=== PATIENT | female | born 1995 | race Caucasian/White ===

== ENCOUNTER 2016-05-13 21:04 | Outpatient (CLI) | payer OTHER ==
[2016-05-13 21:56] LABS: APPEARANCE,URINE CLEAR; BILIRUBIN,URINE NEGATIVE (NEGATIVE); GLUCOSE, URINE NEGATIVE (NEGATIVE); KETONES,URINE NEGATIVE (NEGATIVE); LEUKOCYTE ESTERASE,URINE NEGATIVE (NEGATIVE); NITRITE,URINE NEGATIVE (NEGATIVE); PROTEIN,URINE NEGATIVE (NEGATIVE); URINE SPECIFIC GRAVITY 1.004; UROBILINOGEN,URINE NEGATIVE mg/dL (<2.0)
--- NOTE | 2016-05-13 22:01 | L&D Flow Sheet ---
LD Flowsheet Datetime Report Generated by CPN: 05/13/2016 22:00 Datetime: 05/13/2016 21:43 Vital Signs NBP Sys/Montse/Mean (mmHg): 129 (QS system process) : 80 (QS system process) : 96 (QS system process) Pulse: 83 (QS system process) Datetime: 05/13/2016 21:34 Pain Pain Scale: 4 (Patt Ring, RN) Pain Presence: Constant (Patt Ring, RN) Pain Type: Stabbing (Patt Ring, RN) Pain Location: Back (Patt Ring, RN) Pain Goal: 1 (Patt Ring, RN) Pain Relief Measures: Comfort Measures (Patt Ring, RN) Vaginal Exam Membrane Status: Intact (Patt Ring, RN) Vaginal Bleeding: None (Patt Ring, RN) Maternal Assessment Level of Consciousness: Fully Conscious (Patt Ring, RN) DTR's/Clonus: DTRs 2+; No Clonus (Patt Ring, RN) Headache: Denies (Patt Ring, RN) Breath Sounds, Left: Clear and Equal (Patt Ring, RN) Breath Sounds, Right: Clear and Equal (Patt Ring, RN) Nausea/Vomiting: Present (Annotations: Currently nauseated) (Patt Ring, RN) RUQ Epigastric Pain: Denies (Patt Ring, RN) Teaching Instructional Method: Verbal; Patient Instructed; Family/Support Person Instructed; Verbalized Understanding (Patt Donald RN) Plan of Care: Plan of Care Discussed (Patt Donald RN) Unit Routine: [place] to Room; Call [place]ois; Bed; Handwashing; Monitoring; Safety/Fall Risk Prevention; Bathroom Privileges (Patt Donald RN)
[2016-05-13 22:16] LABS: URINE BARBITURATES SCREEN NEGATIVE; URINE METHADONE SCREEN NEGATIVE; URINE OPIATES LOW NEGATIVE; URINE PHENCYCLIDINE SCREEN NEGATIVE
[2016-05-13] MEDS ORDERED: HYDROXYZINE PAMOATE 50 MG CAPSULE PO ONE (22:30)
[2016-05-13] MEDS ORDERED: HYDROXYZINE PAMOATE 50 MG CAPSULE ONE (22:37)
--- NOTE | 2016-05-13 23:01 | Non Stress Test Report ---
Non Stress Test Datetime Report Generated by CPN: 05/13/2016 23:00 DEMOGRAPHIC EGA NST: 33.6 INDICATION Indication for Study: Other Indication for Study (NST) Other: LC URINE RESULTS Urine Protein, NST: Negative Urine Ketones - NST: Negative Urine Glucose - NST: Negative Urine Blood - NST: Negative MONITORING Monitor Explained: Monitor Explained; Test Explained; Patient Verbalized Understanding Time on Monitor: 05/13/2016 21:32 Time off Monitor: 05/13/2016 22:26 NST Duration: 54 NST INTERVENTIONS NST Interventions: PO Hydration Physician Notified NST: Dr. Souza BABY A: [id number] BABY A Movement : Present Contraction Frequency : Occasional w/irritabilty FHR Baseline : 125 Accelerations : 15X15 Decelerations : None Variability : Moderate 6-25bpm NST Review: Meets Criteria for Reactive NST NST Review and Verified By : Willa Donald RN NST Results: Reactive NST REPORT Report Trigger: Send Report
== END 2016-05-13 22:47 | disposition home or self-care (01) ==
LOC: LC 21:04
PROVIDERS: ATTEND Obstetrics & Gynecology
PROC: 4A1HXCZ Monitoring of Products of Conception, Cardiac Rate, External Approach (ICD-10-PCS; principal; 2016-05-13)
DX: O47.03 False labor before 37 completed weeks of gestation, third trimester (principal); Z3A.33 33 weeks gestation of pregnancy
CPT/HCPCS: 80307; 81001; 87086

== ENCOUNTER 2016-06-01 12:30 | Outpatient (CLI) | payer OTHER | END 2016-06-01 13:05 | disposition home or self-care (01) | LOC: LC 12:30 | PROVIDERS: ATTEND Obstetrics & Gynecology | PROC: 4A1HXCZ Monitoring of Products of Conception, Cardiac Rate, External Approach (ICD-10-PCS; principal; 2016-06-01) | DX: Z34.93 Encounter for supervision of normal pregnancy, unspecified, third trimester (principal); Z36 Encounter for antenatal screening of mother; Z3A.36 36 weeks gestation of pregnancy | CPT/HCPCS: 59025 ==

== ENCOUNTER 2016-06-29 19:35 | Inpatient (IN) | payer OTHER ==
[2016-06-29] MEDS ORDERED: RINGERS SOLUTION,LACTATED 300 ML IV ONE (19:43)
[2016-06-29] MEDS ORDERED: ACETAMINOPHEN 325 MG TABLET PO PRN (19:44)
[2016-06-29] MEDS ORDERED: MAG HYDROX/AL HYDROX/SIMETH SUSP 30 ML UDCUP PO PRN (19:44)
--- NOTE | 2016-06-29 20:00 | L&D Flow Sheet ---
LD Flowsheet Datetime Report Generated by CPN: 06/29/2016 20:00 Datetime: 06/29/2016 19:59 Vital Signs NBP Sys/Montse/Mean (mmHg): 129 (QS system process) : 65 (QS system process) : 91 (QS system process) Pulse: 89 (QS system process) Communication LaborFlag: Antepartum (QS system process)
[2016-06-29 20:11] LABS: ABSOLUTE EOSINOPHILS # (AUTO) 0.1 10^3/uL (0.0-0.6); ABSOLUTE LYMPHOCYTES (AUTO) 1.4 10^3/uL (0.5-4.7); ABSOLUTE MONOCYTES (AUTO) 0.6 10^3/uL (0.1-1.4); BASOPHILS % (AUTO) 0.3 % (0-2); HEMOGLOBIN 11.7 g/dL (12.0-15.5); HGB HCT DIFFERENCE 0.1; LYMPHOCYTES % (AUTO) 15.4 % (13-45); MEAN CORPUSCULAR HEMOGLOBIN 30.3 pg (27.0-33.4); MEAN CORPUSCULAR HGB CONC 33.5 g/dL (32.0-36.0); MEAN CORPUSCULAR VOLUME 90 fl (80-97); MONOCYTES % (AUTO) 6.1 % (3-13); RED BLOOD COUNT 3.88 10^6/uL (3.72-5.28); RED CELL DISTRIBUTION WIDTH 14.4 % (11.5-14.0); SEGMENTED NEUTROPHILS % (AUTO) 77.2 % (42-78)
[2016-06-29] MEDS: RINGERS SOLUTION,LACTATED 1,000 ML IV PRN (20:23)
[2016-06-29 20:27] LABS: ALANINE AMINOTRANSFERASE 29 U/L (9-52); ALBUMIN 3.2 g/dL (3.5-5.0); ALKALINE PHOSPHATASE 210 U/L (38-126); ANION GAP 10 (5-19); ASPARTATE AMINO TRANSFERASE 23 U/L (14-36); BILIRUBIN,TOTAL 0.3 mg/dL (0.2-1.3); BLOOD UREA NITROGEN 13 mg/dL (7-20); CALCIUM 9.5 mg/dL (8.4-10.2); CARBON DIOXIDE 20 mmol/L (22-30); CHLORIDE 107 mmol/L (98-107); CREATININE RESULT 0.74 mg/dL (0.52-1.25); GLUCOSE 118 mg/dL (75-110); POTASSIUM 4.1 mmol/L (3.6-5.0); SODIUM 136.6 mmol/L (137-145); TOTAL PROTEIN 5.9 g/dL (6.3-8.2)
[2016-06-29] MEDS: DINOPROSTONE 10 MG VAGINAL INSERT.SR PV PRN (20:27)
[2016-06-29 20:30] LABS: APPEARANCE,URINE SLIGHTLY-CLOUDY; BILIRUBIN,URINE NEGATIVE (NEGATIVE); GLUCOSE, URINE NEGATIVE (NEGATIVE); KETONES,URINE NEGATIVE (NEGATIVE); LEUKOCYTE ESTERASE,URINE TRACE (NEGATIVE); NITRITE,URINE NEGATIVE (NEGATIVE); PROTEIN,URINE NEGATIVE (NEGATIVE); URINE SPECIFIC GRAVITY 1.017; UROBILINOGEN,URINE NEGATIVE mg/dL (<2.0)
[2016-06-29 20:48] LABS: URINE BARBITURATES SCREEN NEGATIVE; URINE METHADONE SCREEN NEGATIVE; URINE OPIATES LOW NEGATIVE; URINE PHENCYCLIDINE SCREEN NEGATIVE
--- NOTE | 2016-06-29 22:00 | L&D Flow Sheet ---
LD Flowsheet Datetime Report Generated by CPN: 06/29/2016 22:00 Datetime: 06/29/2016 21:31 Monitor Mode: External; Palpation (Crystal Axtell, RN) Monitor Interventions for UA: [place] Adjusted (Crystal My, RN) Frequency (min): Irritability (Crystal Axtell, RN) Resting Tone (Palpate): Relaxed (Crystal Axtell, RN) Contraction Comments: Pt reports not feeling contractions. (Crystal Axtell, RN) Monitor Mode: External US (Crystal Axtell, RN) FHR Baseline Rate : 130 (Crystal Axtell, RN) Variability: Moderate 6-25 bpm (Crystal My, RN) Accelerations: 15X15 (Crystal My, RN) Patient Position/Activity: Left Tilt; Semi-Fowlers (Crystal Axtell, RN) Datetime: 06/29/2016 21:27 NBP Sys/Montse/Mean (mmHg): 122 (QS system process) : 65 (QS system process) : 86 (QS system process) Pulse: 72 (QS system process) LaborFlag: Antepartum (QS system process) Datetime: 06/29/2016 21:00 Frequency (min): Irritability (Crystal Axtell, RN) Quality: Mild (Crystal My, RN) Resting Tone (Palpate): Relaxed (Crystal Axtell, RN) Monitor Mode: External US (Crystal My, RN) FHR Baseline Rate : 145 (Crystal Axtell, RN) Variability: Moderate 6-25 bpm (Crystal My, RN) Accelerations: 15X15 (Crystal Axtell, RN) Patient Position/Activity: Left Tilt; Semi-Fowlers (Crystal My, RN) Comfort Measures: Family Support (Crystal My, RN) Datetime: 06/29/2016 20:30 Monitor Mode: External; Palpation (Crystal My, RN) Monitor Interventions for UA: [place] Adjusted (Crystal Axtell, RN) Quality: Mild (Crystal Axtell, RN) Resting Tone (Palpate): Relaxed (Crystal My, RN) Monitor Mode: External US (Crystal Axtell, RN) FHR Baseline Rate : 145 (Crystal Axtell, RN) Variability: Moderate 6-25 bpm (Crystal Axtell, RN) Accelerations: 15X15 (Crystal My, RN) Patient Position/Activity: Right Tilt; Semi-Fowlers (Crystal My, RN) Datetime: 06/29/2016 20:27 Dilatation (cm): 0.5 (Crystal My, RN) Effacement (%): 25 (Crystal Axtell, RN) Station: 0 (Crystal My, RN) Exam by: Lisandro Pepe RN (Crystal My, RN) Vaginal Bleeding: None (Crystal My, RN) Cervix, Consistency: Firm (Crystal My, RN) Cervix, Position: Midposition (Crystal Axtell, RN) Cervical Ripening Agents: Cervidil (Crystal My, RN) Datetime: 06/29/2016 20:10 Comments: [id number]; acoustic stimulation with music (Milla Rasmussen RN) Datetime: 06/29/2016 20:00 Monitor Mode: External; Palpation (Lelia Pepe RN) Frequency (min): 3-6 (Lelia Pepe RN) Quality: Mild (Lelia Pepe RN) Duration (sec): 40-60 (Lelia Pepe RN) Resting Tone (Palpate): Relaxed (Lelia Pepe RN) Monitor Mode: External US (Lelia Pepe RN) FHR Baseline Rate : 140 (Lelia Pepe RN) Variability: Moderate 6-25 bpm (Lelia Pepe RN) Comments: diet soda provided (Milla Rasmussen RN) Procedures: Consents Signed (Lelia Pepe RN) Patient Position/Activity: Left Tilt; Semi-Fowlers (Lelia Peep RN)
[2016-06-29] MEDS ORDERED: ZOLPIDEM TARTRATE 5 MG TABLET PO ONE (22:14)
[2016-06-29] MEDS ORDERED: ZOLPIDEM TARTRATE 5 MG TABLET ONE (22:18)
[2016-06-29] MEDS: ZOLPIDEM TARTRATE 5 MG TABLET PO SCH (22:28)
--- NOTE | 2016-06-30 08:00 | L&D Flow Sheet ---
LD Flowsheet Datetime Report Generated by CPN: 06/30/2016 08:00 Datetime: 06/30/2016 07:49 Level of Consciousness: Fully Conscious (Melissa Duenas, RN) DTR's/Clonus: DTRs 2+; No Clonus (Melissa Duenas, RN) Headache: Denies (Melissa Duenas, RN) Breath Sounds, Left: Clear and Equal (Melissa Duenas, RN) Breath Sounds, Right: Clear and Equal (Melissa Duenas, RN) Nausea/Vomiting: Denies (Melissa Duenas, RN) RUQ Epigastric Pain: Denies (Melissa Duenas, RN) Datetime: 06/30/2016 07:33 Communication Comments: report received from [place], RN (Melissa Duenas, RN) Datetime: 06/30/2016 07:30 Monitor Mode: External; Palpation (Melissa Duenas, RN) Frequency (min): 2-4 (Melissa Duenas, RN) Quality: Mild (Melissa Henrique, RN) Duration (sec): 40-60 (Melissa Henrique, RN) Duration Criteria: Less than Two 120 Second Contractions (Melissa Henrique, RN) Pattern: Normal: <= 5 Contractions in 10 Minutes (Melissa Henrique, RN) Resting Tone (Palpate): Relaxed (Melissa Henrique, RN) Monitor Mode: External US (Melissa Henrique, RN) FHR Baseline Rate : 120 (Melissa Henrique, RN) FHR Baseline Changes: No Baseline Change (Melissa Henrique, RN) Variability: Moderate 6-25 bpm (Melissa Henrique, RN) Accelerations: 15X15 (Melissa Henrique, RN) Decelerations: None (Melissa Henrique, RN) Datetime: 06/30/2016 07:08 Strip Reviewed by: Lisandro Pepe RN (Crystal My, RN) Communication: RN Reviewed Strip; Report Given to @ Mike Duenas RN (Crystal My, RN) Datetime: 06/30/2016 07:00 Monitor Interventions for UA: [place] Adjusted (Crystal My, RN) Duration Criteria: Less than Two 120 Second Contractions (Crystal [place], RN) Resting Tone (Palpate): Relaxed (Crystal My, RN) Monitor Mode: External US (Crystal [place], RN) FHR Baseline Rate : 125 (Crystal [place], RN) Variability: Moderate 6-25 bpm (Crystal [place], RN) Accelerations: 15X15 (Crystal [place], RN) Datetime: 06/30/2016 06:30 Monitor Interventions for UA: [place] Adjusted (Crystal [place], RN) Frequency (min): UTD (Crystal [place], RN) Monitor Mode: External US (Crystal My, RN) FHR Baseline Rate : 120 (Crystal My, RN) Variability: Moderate 6-25 bpm (Crystal [place], RN) Accelerations: 15X15 (Crystal My, RN) I/O Interventions: Up to BR (Crystal [place], RN) Datetime: 06/30/2016 06:00 Monitor Interventions for UA: [place] Adjusted (Crystal [place], RN) Resting Tone (Palpate): Relaxed (Crystal [place], RN) Monitor Mode: External US (Crystal [place], RN) FHR Baseline Rate : 120 (Crystal [place], RN) Variability: Moderate 6-25 bpm (Crystal My, RN) Accelerations: 15X15 (Crystal My, RN) Datetime: 06/30/2016 05:30 Monitor Mode: External; Palpation (Crystal My, RN) Monitor Interventions for UA: [place] Adjusted (Crystal [place], RN) Frequency (min): 5-6 (Crystal [place], RN) Quality: Mild (Crystal [place], RN) Duration (sec): 70-90 (Crystal My, RN) Duration Criteria: Less than Two 120 Second Contractions (Crystal My, RN) Resting Tone (Palpate): Relaxed (Crystal [place], RN) Monitor Mode: External US (Crystal My, RN) Variability: Moderate 6-25 bpm (Crystal My, RN) Accelerations: 15X15 (Crystal [place], RN) Patient Position/Activity: Left Lateral (Crystal [place], RN) Datetime: 06/30/2016 05:00 Frequency (min): 1-3 (Crystal My, RN) Quality: Mild (Crystal My, RN) Duration (sec): 60-110 (Crystal [place], RN) Resting Tone (Palpate): Relaxed (Crystal [place], RN) Monitor Mode: External US (Crystal My, RN) FHR Baseline Rate : 120 (Crystal My, RN) Variability: Moderate 6-25 bpm (Crystal [place], RN) Accelerations: 15X15 (Crystal My, RN) Patient Position/Activity: Left Lateral (Crystal [place], RN) Datetime: 06/30/2016 04:38 I/O Interventions: Up to BR (Crystal My, RN) Datetime: 06/30/2016 04:30 Monitor Mode: External (Crystal [place], RN) Frequency (min): 2-3.5 (Crystal [place], RN) Quality: Mild (Crystal [place], RN) Duration (sec): 80-110 (Crystal My, RN) Duration Criteria: Less than Two 120 Second Contractions (Crystal [place], RN) Resting Tone (Palpate): Relaxed (Crystal [place], RN) Monitor Mode: External US (Crystal [place], RN) FHR Baseline Rate : 120 (Crystal [place], RN) Variability: Moderate 6-25 bpm (Crystal [place], RN) Accelerations: 15X15 (Crystal My, RN) Patient Position/Activity: Left Lateral (Crystal My, RN) Datetime: 06/30/2016 04:00 Monitor Mode: External (Crystal My, RN) Frequency (min): 2-5 (Crystal [place], RN) Quality: Mild (Crystal [place], RN) Duration (sec): 80-100 (Crystal [place], RN) Duration Criteria: Less than Two 120 Second Contractions (Crystal [place], RN) Resting Tone (Palpate): Relaxed (Crystal My, RN) Monitor Mode: External US (Crystal My, RN) FHR Baseline Rate : 120 (Crystal My, RN) Variability: Moderate 6-25 bpm (Crystal [place], RN) Patient Position/Activity: Left Lateral (Crystal My, RN) Datetime: 06/30/2016 03:30 Monitor Mode: External (Crystal [place], RN) Frequency (min): 3-6 (Crystal My, RN) Quality: Mild (Crystal My, RN) Duration (sec): 40-60 (Crystal [place], RN) Duration Criteria: Less than Two 120 Second Contractions (Crystal My, RN) Resting Tone (Palpate): Relaxed (Crystal [place], RN) Monitor Mode: External US (Crystal My, RN) FHR Baseline Rate : 135 (Crystal My, RN) Variability: Moderate 6-25 bpm (Crystal My, RN) Patient Position/Activity: Left Lateral (Crystal [place], RN) Datetime: 06/30/2016 03:00 Monitor Mode: External; Palpation (Crystal My, RN) Frequency (min): 4-6 (Crystal [place], RN) Quality: Mild (Crystal [place], RN) Duration (sec): 40-60 (Crystal My, RN) Duration Criteria: Less than Two 120 Second Contractions (Crystal My, RN) Resting Tone (Palpate): Relaxed (Crystal My, RN) Monitor Mode: External US (Crystal My, RN) FHR Baseline Rate : 140 (Crystal [place], RN) Variability: Moderate 6-25 bpm (Crystal My, RN) Accelerations: Prolonged (Crystal My, RN) Patient Position/Activity: Left Lateral (Crystal My, RN) Datetime: 06/30/2016 02:38 NBP Sys/Montse/Mean (mmHg): 104 (QS system process) : 53 (QS system process) : 72 (QS system process) Pulse: 78 (QS system process) LaborFlag: Antepartum (QS system process) Datetime: 06/30/2016 02:30 Monitor Mode: External (Crystal My, RN) Frequency (min): 3-6 (Crystal My, RN) Quality: Mild (Crystal [place], RN) Duration (sec): 40-60 (Crystal My, RN) Duration Criteria: Less than Two 120 Second Contractions (Crystal [place], RN) Resting Tone (Palpate): Relaxed (Crystal [place], RN) Monitor Mode: External US (Crystal [place], RN) FHR Baseline Rate : 125 (Crystal My, RN) Patient Position/Activity: Right Lateral (Crystal [place], RN) Datetime: 06/30/2016 02:25 I/O Interventions: Up to BR (Crystal [place], RN) Datetime: 06/30/2016 02:00 Monitor Mode: External (Crystal [place], RN) Frequency (min): 3-6 (Crystal My, RN) Quality: Mild (Crystal My, RN) Duration (sec): 40-60 (Crystal [place], RN) Duration Criteria: Less than Two 120 Second Contractions (Crystal [place], RN) Resting Tone (Palpate): Relaxed (Crystal [place], RN) Monitor Mode: External US (Crystal My, RN) FHR Baseline Rate : 135 (Crystal My, RN) Variability: Moderate 6-25 bpm (Crystal [place], RN) Accelerations: 15X15 (Crystal My, RN) Patient Position/Activity: Right Lateral (Crystal [place], RN) Datetime: 06/30/2016 01:30 Monitor Mode: External (Crystal My, RN) Frequency (min): 2-5 (Crystal My, RN) Quality: Mild (Crystal [place], RN) Duration (sec): 40-60 (Crystal My, RN) Duration Criteria: Less than Two 120 Second Contractions (Crystal [place], RN) Resting Tone (Palpate): Relaxed (Crystal [place], RN) Monitor Mode: External US (Crystal [place], RN) FHR Baseline Rate : 120 (Crystal My, RN) Variability: Moderate 6-25 bpm (Crystal [place], RN) Accelerations: 15X15 (Crystal [place], RN) Patient Position/Activity: Right Lateral (Crystal My, RN) Datetime: 06/30/2016 01:00 Monitor Mode: External; Palpation (Crystal [place], RN) Frequency (min): 3-7 (Crystal My, RN) Quality: Mild (Crystal [place], RN) Duration (sec): 40-80 (Crystal [place], RN) Duration Criteria: Less than Two 120 Second Contractions (Crystal My, RN) Resting Tone (Palpate): Relaxed (Crystal [place], RN) Monitor Mode: External US (Crystal [place], RN) FHR Baseline Rate : 125 (Crystal [place], RN) Variability: Moderate 6-25 bpm (Crystal [place], RN) Patient Position/Activity: Right Lateral (Crystal [place], RN) Datetime: 06/30/2016 00:30 Monitor Mode: External; Palpation (Crystal [place], RN) Frequency (min): 2-6 (Crystal [place], RN) Quality: Mild (Crystal [place], RN) Duration (sec): 40-60 (Crystal [place], RN) Duration Criteria: Less than Two 120 Second Contractions (Crystal [place], RN) Resting Tone (Palpate): Relaxed (Crystal My, RN) Monitor Mode: External US (Crystal [place], RN) FHR Baseline Rate : 130 (Crystal [place], RN) Variability: Moderate 6-25 bpm (Crystal My, RN) Accelerations: 15X15 (Crystal [place], RN) Patient Position/Activity: Right Lateral (Crystal [place], RN) Datetime: 06/29/2016 23:30 Monitor Mode: External; Palpation (Crystal [place], RN) Frequency (min): 5-6 (Crystal [place], RN) Quality: Mild (Crystal My, RN) Duration (sec): 40-90 (Crystal My, RN) Duration Criteria: Less than Two 120 Second Contractions (Crystal My, RN) Resting Tone (Palpate): Relaxed (Crystal [place], RN) Monitor Mode: External US (Crystal [place], RN) FHR Baseline Rate : 120 (Crystal [place], RN) Variability: Moderate 6-25 bpm (Crystal My, RN) Patient Position/Activity: Right Lateral (Crystal My, RN) Datetime: 06/29/2016 23:20 NBP Sys/Montse/Mean (mmHg): 111 (QS system process) : 68 (QS system process) : 83 (QS system process) Pulse: 77 (QS system process) LaborFlag: Antepartum (QS system process) Datetime: 06/29/2016 23:00 Monitor Mode: Palpation (Crystal [place], RN) Monitor Interventions for UA: [place] Adjusted (Crystal My, RN) Frequency (min): 3-4 (Crystal [place], RN) Quality: Mild (Crystal [place], RN) Duration (sec): 50-70 (Crystal My, RN) Duration Criteria: Less than Two 120 Second Contractions (Crystal [place], RN) Resting Tone (Palpate): Relaxed (Crystal My, RN) Contraction Comments: pt lying on side (Crystal [place], RN) Monitor Mode: External US (Crystal My, RN) FHR Baseline Rate : 130 (Crystal My, RN) Variability: Moderate 6-25 bpm (Crystal [place], RN) Accelerations: 15X15 (Crystal My, RN) Patient Position/Activity: Right Lateral (Crystal My, RN) Datetime: 06/29/2016 22:32 NBP Sys/Montse/Mean (mmHg): 126 (QS system process) : 69 (QS system process) : 86 (QS system process) Pulse: 80 (QS system process) LaborFlag: Antepartum (QS system process) Datetime: 06/29/2016 22:30 Monitor Mode: External; Palpation (Crystal My, RN) Monitor Interventions for UA: [place] Adjusted (Crystal [place], RN) Quality: Mild (Crystal My, RN) Resting Tone (Palpate): Relaxed (Crystal My, RN) Monitor Mode: External US (Crystal My, RN) FHR Baseline Rate : 130 (Crystal [place], RN) Variability: Moderate 6-25 bpm (Crystal [place], RN) Accelerations: 15X15 (Crystal [place], RN) Patient Position/Activity: Left Tilt; Semi-Fowlers (Crystal [place], RN) Datetime: 06/29/2016 22:28 Analgesics/Sedatives: Ambien (mg) @ 10 (Crystal [place], RN) Datetime: 06/29/2016 22:26 Provider Reviewed Strip: Yes (Crystal [place], RN) Communication: RN at Bedside (Crystal My, RN) Notification Reason: Other (Crystal [place], RN) Communication Comments: Discussed birthplan with pt. Pt verbalized understanding. (Crystal [place], RN) Datetime: 06/29/2016 22:24 I/O Interventions: Up to BR (Crystal My, RN) Datetime: 06/29/2016 22:00 Monitor Mode: External; Palpation (Lelia Pepe RN) Frequency (min): Irritability (Lelia Pepe RN) Quality: Mild (Lelia Pepe RN) Resting Tone (Palpate): Relaxed (Lelia Pepe RN) Monitor Mode: External US (Lelia Pepe RN) FHR Baseline Rate : 135 (Lelia Pepe RN) Variability: Moderate 6-25 bpm (Lelia Pepe RN) Accelerations: 15X15 (Lelia Pepe RN) Patient Position/Activity: Left Tilt; Semi-Fowlers (Lelia Pepe RN)
[2016-06-30] MEDS ORDERED: MISOPROSTOL 0.1 MG TABLET PO ONE ×2 (08:48→14:02)
--- NOTE | 2016-06-30 10:00 | L&D Flow Sheet ---
LD Flowsheet Datetime Report Generated by CPN: 06/30/2016 10:00 Datetime: 06/30/2016 08:41 Communication Comments: monitors removed for patient to eat breakfast and shower (Melissa Henrique, RN) Datetime: 06/30/2016 08:40 Communication Comments: order received from Dr. Souza for Cytotec 50 mg PO x1 after patient is off monitor for one hour (Melissa Henrique, RN) Datetime: 06/30/2016 08:37 Dilatation (cm): 0.5 (Melissa Duenas RN) Effacement (%): 25 (Melissa Duenas RN) Station: -1 (Melissa Duenas RN) Exam by: Mike Duenas RN (Melissa Duenas RN) Vaginal Bleeding: None (Melissa Duenas RN) Cervix, Consistency: Moderate (Melissa Duenas RN) Cervix, Position: Midposition (Melissa Duenas RN) Datetime: 06/30/2016 08:34 Communication Comments: cervidil removed (Melissa Duenas, FREDDY) Datetime: 06/30/2016 08:30 Monitor Mode: External; Palpation (Melissa Duenas, RN) Frequency (min): 2-2.5 (Melissa Duenas, RN) Quality: Mild (Melissa Duenas, RN) Duration (sec): 70-90 (Melissa Duenas, RN) Duration Criteria: Less than Two 120 Second Contractions (Melissa Duenas, RN) Pattern: Normal: <= 5 Contractions in 10 Minutes (Melissa Duenas, RN) Resting Tone (Palpate): Relaxed (Melissa Duenas, RN) Monitor Mode: External US (Melissa Duenas, RN) FHR Baseline Rate : 130 (Melissa Duenas, RN) FHR Baseline Changes: No Baseline Change (Melissa Duenas, RN) Variability: Moderate 6-25 bpm (Melissa Duenas, RN) Accelerations: 15X15 (Melissa Duenas, RN) Decelerations: None (Melissa Duenas, RN) Datetime: 06/30/2016 08:00 Monitor Mode: External; Palpation (Melissa Duenas, FREDDY) Frequency (min): 2-4 (Melissa Duenas, RN) Quality: Mild (Melissa Duenas, RN) Duration (sec): 60-70 (Melissa Duenas, RN) Duration Criteria: Less than Two 120 Second Contractions (Melissa Duenas, RN) Pattern: Normal: <= 5 Contractions in 10 Minutes (Melissa Duenas, RN) Resting Tone (Palpate): Relaxed (Melissa Duenas, RN) Contraction Comments: irritability (Melissa Duenas, RN) Monitor Mode: External US (Melissa Duenas, RN) FHR Baseline Rate : 140 (Melissa Duenas, RN) FHR Baseline Changes: No Baseline Change (Melissa Duenas, RN) Variability: Moderate 6-25 bpm (Melissa Duenas, RN) Accelerations: 15X15 (Melissa Duenas RN) Decelerations: None (Melissa Duenas RN)
[2016-06-30] MEDS ORDERED: MISOPROSTOL 0.1 MG TABLET ONE ×2 (10:02→13:55)
--- NOTE | 2016-06-30 10:53 | L&D Progress Notes ---
PROGRESS NOTES Datetime Report Generated by CPN: 06/30/2016 10:53 PROGRESS NOTE Plan: Continue Present Management; Cervical Ripening Vital Signs : Reviewed; Within Normal Limits Comment: Cat 1 strip, minimal cervical change, cytotec placed continue current management VAGINAL EXAM Dilatation: 0 Effacement: 0 Station: -3 MEMBRANES Pooling: Negative Membranes: Intact FETUS A FHR - Baseline: 140 Variability: Moderate 6-25bpm Accelerations: 15X15 : 40.5 Estimated Weight (gm): 4000 Presentation: Vertex SIGNATURE SIGNATURE: [id number] SIGNATURE: [id number] SIGNATURE: [id number] Assignment: Rey Souza DO Signature: with User ID: [email or web address] : with User ID: [email or web address]
--- NOTE | 2016-06-30 12:00 | L&D Flow Sheet ---
LD Flowsheet Datetime Report Generated by CPN: 06/30/2016 12:00 Datetime: 06/30/2016 11:46 NBP Sys/Montse/Mean (mmHg): 108 (QS system process) : 58 (QS system process) : 79 (QS system process) Pulse: 71 (QS system process) LaborFlag: Antepartum (QS system process) Datetime: 06/30/2016 11:30 Monitor Mode: External; Palpation (Melissa Duenas RN) Frequency (min): irritability (Melissa Duenas RN) Quality: Mild (Melissa Duenas RN) Duration Criteria: Less than Two 120 Second Contractions (Melissa Duenas RN) Pattern: Normal: <= 5 Contractions in 10 Minutes (Melissa Duenas RN) Resting Tone (Palpate): Relaxed (Melissa Duenas RN) Monitor Mode: External US (Melissa Duenas RN) FHR Baseline Rate : 145 (Melissa Duenas, RN) FHR Baseline Changes: No Baseline Change (Melissa Duenas RN) Variability: Moderate 6-25 bpm (Melissa Duenas RN) Accelerations: 15X15 (Melissa Duenas RN) Decelerations: None (Melissa Duenas, RN) Datetime: 06/30/2016 11:15 NBP Sys/Montse/Mean (mmHg): 103 (QS system process) : 55 (QS system process) : 72 (QS system process) Pulse: 71 (QS system process) LaborFlag: Antepartum (QS system process) Datetime: 06/30/2016 11:01 NBP Sys/Montse/Mean (mmHg): 108 (QS system process) : 60 (QS system process) : 78 (QS system process) Pulse: 84 (QS system process) LaborFlag: Antepartum (QS system process) Datetime: 06/30/2016 11:00 Monitor Mode: External; Palpation (Melissa Duenas RN) Frequency (min): irritability (Melissa Duenas, RN) Quality: Mild (Melissa Duenas, RN) Duration Criteria: Less than Two 120 Second Contractions (Melissa Duenas, RN) Pattern: Normal: <= 5 Contractions in 10 Minutes (Melissa Duenas RN) Resting Tone (Palpate): Relaxed (Melissa Duenas, RN) Monitor Mode: External US (Melissa Duenas, RN) FHR Baseline Rate : 140 (Melissa Duenas, RN) FHR Baseline Changes: No Baseline Change (Melissa Duenas, RN) Variability: Moderate 6-25 bpm (Melissa Duenas, RN) Accelerations: 15X15 (Melissabarbara Duenas, RN) Decelerations: None (Melissa Duenas, RN) Datetime: 06/30/2016 10:54 I/O Interventions: Up to BR (Melissa Duenas, RN) Datetime: 06/30/2016 10:45 NBP Sys/Montse/Mean (mmHg): 117 (QS system process) : 69 (QS system process) : 86 (QS system process) Pulse: 86 (QS system process) LaborFlag: Antepartum (QS system process) Datetime: 06/30/2016 10:30 Monitor Mode: External; Palpation (Melissa Duenas RN) Frequency (min): irritability (Meilssa Duenas RN) Quality: Mild (Melissa Duensa RN) Duration Criteria: Less than Two 120 Second Contractions (Melissa Duenas RN) Pattern: Normal: <= 5 Contractions in 10 Minutes (Melissa Duenas RN) Resting Tone (Palpate): Relaxed (Melissa Duenas RN) Monitor Mode: External US (Melissa Duenas RN) FHR Baseline Rate : 140 (Melissa Duenas RN) FHR Baseline Changes: No Baseline Change (Melissa Duenas RN) Variability: Moderate 6-25 bpm (Melissa Duenas RN) Accelerations: 15X15 (Melissa Duenas RN) Decelerations: None (Melissa Duenas RN) Datetime: 06/30/2016 10:21 I/O Interventions: Up to BR (Melissa Henrique, RN) Datetime: 06/30/2016 10:16 NBP Sys/Montse/Mean (mmHg): 100 (QS system process) : 59 (QS system process) : 76 (QS system process) Pulse: 78 (QS system process) LaborFlag: Antepartum (QS system process) Datetime: 06/30/2016 10:15 Cervical Ripening Agents: Cytotec @ 50 mcg (Melissa Henrique, RN) Datetime: 06/30/2016 10:02 NBP Sys/Montse/Mean (mmHg): 120 (QS system process) : 71 (QS system process) : 90 (QS system process) Pulse: 78 (QS system process) LaborFlag: Antepartum (QS system process) Datetime: 06/30/2016 10:00 Monitor Mode: External; Palpation (Melissa Duenas RN) Frequency (min): irritability (Melissa Duenas RN) Quality: Mild (Melissa Duenas RN) Duration Criteria: Less than Two 120 Second Contractions (Melissa Duenas RN) Pattern: Normal: <= 5 Contractions in 10 Minutes (Melissa Duenas RN) Resting Tone (Palpate): Relaxed (Melissa Duenas RN) Monitor Mode: External US (Melissa Duenas RN) FHR Baseline Rate : 140 (Melissa Duenas RN) FHR Baseline Changes: No Baseline Change (Melissa Duenas RN) Variability: Moderate 6-25 bpm (Melissa Duenas RN) Accelerations: 15X15 (Melissa Duenas RN) Decelerations: None (Melissa Duenas RN)
[2016-06-30] MEDS ORDERED: NALBUPHINE HCL INJ 10 MG/1 ML AMPULE ONE (13:44)
--- NOTE | 2016-06-30 14:00 | L&D Flow Sheet ---
LD Flowsheet Datetime Report Generated by CPN: 06/30/2016 14:00 Datetime: 06/30/2016 13:46 Patient Position/Activity: Left Extreme; Low Fowlers (Melissa Henrique, RN) Datetime: 06/30/2016 13:44 I/O Interventions: Up to BR (Melissa Henrique, RN) Datetime: 06/30/2016 13:39 Communication Comments: patient c/o pain 5/5, tearful (Melissa Henrique, RN) Datetime: 06/30/2016 13:31 NBP Sys/Montse/Mean (mmHg): 112 (QS system process) : 56 (QS system process) : 74 (QS system process) Pulse: 76 (QS system process) LaborFlag: Antepartum (QS system process) Datetime: 06/30/2016 13:01 NBP Sys/[place]se/Mean (mmHg): 131 (QS system process) : 80 (QS system process) : 99 (QS system process) Pulse: 71 (QS system process) LaborFlag: Antepartum (QS system process) Datetime: 06/30/2016 12:47 NBP Sys/Montse/Mean (mmHg): 106 (QS system process) : 66 (QS system process) : 81 (QS system process) Pulse: 75 (QS system process) LaborFlag: Antepartum (QS system process) Datetime: 06/30/2016 12:33 NBP Sys/Montse/Mean (mmHg): 114 (QS system process) : 57 (QS system process) : 76 (QS system process) Pulse: 75 (QS system process) LaborFlag: Antepartum (QS system process) Datetime: 06/30/2016 12:15 NBP Sys/Montse/Mean (mmHg): 109 (QS system process) : 61 (QS system process) : 78 (QS system process) Pulse: 75 (QS system process) LaborFlag: Antepartum (QS system process) Datetime: 06/30/2016 12:00 NBP Sys/Montse/Mean (mmHg): 110 (QS system process) : 60 (QS system process) : 79 (QS system process) Pulse: 66 (QS system process) LaborFlag: Antepartum (QS system process)
--- NOTE | 2016-06-30 16:00 | L&D Flow Sheet ---
LD Flowsheet Datetime Report Generated by CPN: 06/30/2016 16:00 Datetime: 06/30/2016 15:45 NBP Sys/Montse/Mean (mmHg): 124 (QS system process) : 78 (QS system process) : 97 (QS system process) Pulse: 72 (QS system process) LaborFlag: Antepartum (QS system process) Datetime: 06/30/2016 15:31 NBP Sys/[place]se/Mean (mmHg): 131 (QS system process) : 79 (QS system process) : 100 (QS system process) Pulse: 67 (QS system process) LaborFlag: Antepartum (QS system process) Datetime: 06/30/2016 15:30 Monitor Mode: External; Palpation (Melissa Duenas RN) Frequency (min): irritability (Melissa Duenas RN) Quality: Mild (Melissa Duenas, FREDDY) Duration Criteria: Less than Two 120 Second Contractions (Melissa Duenas RN) Pattern: Normal: <= 5 Contractions in 10 Minutes (Melissa Duenas RN) Resting Tone (Palpate): Relaxed (Melissa Duenas RN) Monitor Mode: External US (Melissa Duenas RN) FHR Baseline Rate : 130 (Melissa Duenas RN) FHR Baseline Changes: No Baseline Change (Melissa Duenas RN) Variability: Moderate 6-25 bpm (Melissa Duenas, RN) Accelerations: None (Melissa Duenas, RN) Decelerations: None (Melissa Duenas, RN) Datetime: 06/30/2016 15:16 NBP Sys/[place]se/Mean (mmHg): 127 (QS system process) : 74 (QS system process) : 95 (QS system process) Pulse: 68 (QS system process) LaborFlag: Antepartum (QS system process) Datetime: 06/30/2016 15:01 NBP Sys/Montse/Mean (mmHg): 110 (QS system process) : 65 (QS system process) : 83 (QS system process) Pulse: 68 (QS system process) LaborFlag: Antepartum (QS system process) Datetime: 06/30/2016 15:00 Monitor Mode: External; Palpation (Melissa Duenas RN) Frequency (min): irritability (Melissa Duenas RN) Quality: Mild (Melissa Duenas RN) Duration Criteria: Less than Two 120 Second Contractions (Melissa Duenas RN) Pattern: Normal: <= 5 Contractions in 10 Minutes (Melissa Duenas RN) Resting Tone (Palpate): Relaxed (Melissa Duenas RN) Monitor Mode: External US (Melissa Duenas RN) FHR Baseline Rate : 125 (Melissa Duenas RN) FHR Baseline Changes: No Baseline Change (Melissa Deunas RN) Variability: Moderate 6-25 bpm (Melissa Duenas RN) Accelerations: 10X10 (Melissa Henrique, RN) Decelerations: None (Melissa Duenas, RN) Datetime: 06/30/2016 14:53 Pain Assessment Comments: patient resting peacefully (Melissa Duenas, RN) LaborFlag: Antepartum (QS system process) Datetime: 06/30/2016 14:45 NBP Sys/Montse/Mean (mmHg): 108 (QS system process) : 55 (QS system process) : 76 (QS system process) Pulse: 50 (QS system process) LaborFlag: Antepartum (QS system process) Datetime: 06/30/2016 14:31 NBP Sys/Montse/Mean (mmHg): 107 (QS system process) : 57 (QS system process) : 74 (QS system process) Pulse: 62 (QS system process) LaborFlag: Antepartum (QS system process) Datetime: 06/30/2016 14:30 Monitor Mode: External; Palpation (Melissa Duenas, RN) Frequency (min): irritability (Melissa Duenas, FREDDY) Quality: Mild (Melissa Duenas, RN) Duration Criteria: Less than Two 120 Second Contractions (Melissa Duenas, RN) Pattern: Normal: <= 5 Contractions in 10 Minutes (Melissa Duenas, RN) Resting Tone (Palpate): Relaxed (Melissa Duenas, RN) Monitor Mode: External US (Melissa Duenas, RN) FHR Baseline Rate : 125 (Melissa Duenas RN) FHR Baseline Changes: No Baseline Change (Melissa Duenas, RN) Variability: Moderate 6-25 bpm (Melissa Duenas, RN) Accelerations: None (Melissa Duenas, RN) Decelerations: None (Melissa Duenas, RN) Datetime: 06/30/2016 14:15 NBP Sys/Montse/Mean (mmHg): 106 (QS system process) : 62 (QS system process) : 77 (QS system process) Pulse: 57 (QS system process) LaborFlag: Antepartum (QS system process) Datetime: 06/30/2016 14:01 NBP Sys/Montse/Mean (mmHg): 108 (QS system process) : 62 (QS system process) : 80 (QS system process) Pulse: 67 (QS system process) LaborFlag: Antepartum (QS system process) Datetime: 06/30/2016 14:00 Monitor Mode: External; Palpation (Melissa Duenas RN) Frequency (min): irritability (Melissa Duenas RN) Quality: Mild (Melissa Duenas RN) Duration Criteria: Less than Two 120 Second Contractions (Melissa Duenas RN) Pattern: Normal: <= 5 Contractions in 10 Minutes (Melissa Duenas RN) Resting Tone (Palpate): Relaxed (Melissa Duenas RN) Monitor Mode: External US (Melissa Duenas RN) FHR Baseline Rate : 140 (Melissa Duenas RN) FHR Baseline Changes: No Baseline Change (Melissa Duenas RN) Variability: Moderate 6-25 bpm (Melissa Duenas RN) Accelerations: 15X15 (Melissa Duenas RN) Decelerations: None (Melissa Duenas RN) Cervical Ripening Agents: Cytotec @ 25 mcg (Melissa Duenas RN)
[2016-06-30] MEDS ORDERED: ONDANSETRON HCL INJ/PF 4 MG/2 ML SDV ONE (16:16)
[2016-06-30] MEDS ORDERED: HYDROXYZINE PAMOATE 50 MG CAPSULE ONE (17:45)
[2016-06-30] MEDS ORDERED: MORPHINE SULFATE 10 MG/ML INJ ONE (18:54)
[2016-06-30] MEDS ORDERED: DINOPROSTONE 10 MG VAGINAL INSERT.SR ONE (18:54)
[2016-06-30] MEDS: RINGERS SOLUTION,LACTATED 1,000 ML IV PRN (19:27)
[2016-06-30] MEDS: DINOPROSTONE 10 MG VAGINAL INSERT.SR PV PRN (19:27)
[2016-06-30] MEDS ORDERED: ONDANSETRON 4 MG TAB.RAPDIS ONE (19:55)
[2016-06-30] MEDS ORDERED: PROMETHAZINE HCL 25 MG TABLET ONE (19:55)
--- NOTE | 2016-06-30 20:01 | L&D Flow Sheet ---
LD Flowsheet Datetime Report Generated by CPN: 06/30/2016 20:00 Datetime: 06/30/2016 19:22 Communication: RN at Bedside (Miranda Nuno, RN) Communication Comments: Report received from M Adnerson. Assumed care at this time. (Miranda Nuno, RN) Datetime: 06/30/2016 19:21 Communication Comments: report given to B. Nuno, RN. Care relinquished (Melissa Henrique, RN) Datetime: 06/30/2016 19:15 Monitor Mode: External; Palpation (Melissa Henrique, RN) Frequency (min): 2-3 (Melissabarbara Duenas, RN) Quality: Mild (Melissa Henrique, RN) Duration (sec): 60-70 (Melissa Henrique, RN) Duration Criteria: Less than Two 120 Second Contractions (Melissa Henrique, RN) Pattern: Normal: <= 5 Contractions in 10 Minutes (Melissa Henrique, RN) Resting Tone (Palpate): Relaxed (Melissa Henrique, RN) Monitor Mode: External US (Melissa Henrique, RN) FHR Baseline Rate : 145 (Melissa Henrique, RN) FHR Baseline Changes: No Baseline Change (Melissa Henrique, RN) Variability: Moderate 6-25 bpm (Melissa Henrique, RN) Accelerations: 15X15 (Melissa Henrique, RN) Decelerations: None (Melissa Henrique, RN) Datetime: 06/30/2016 19:07 Cervical Ripening Agents: Cervidil (Melissa Henrique, RN) Datetime: 06/30/2016 19:06 Medication Comments: morphine 5mg IM per MD order (Melissa Henrique, RN) Datetime: 06/30/2016 19:00 NBP Sys/Montse/Mean (mmHg): 119 (QS system process) : 72 (QS system process) : 91 (QS system process) Pulse: 63 (QS system process) LaborFlag: Antepartum (QS system process) Datetime: 06/30/2016 18:30 Comments: patient off monitor in shower per MD order (Melissa Henrique, RN) Datetime: 06/30/2016 18:12 Temperature (F): 98.2 (Melissa Duenas RN) Temperature (C): 36.8 (QS system process) Communication Comments: patient off monitor to shower per MD (Melissa Duenas RN) LaborFlag: Antepartum (QS system process) Datetime: 06/30/2016 18:05 Communication Comments: patient c/o "cramping" pain 5/5. MD aware. Order received for patient to be off monitor to shower. Order received from Dr. Souza to place Cervidil once patient back in bed, give Morphine 5 mg IM x1 (Melissa Duenas RN) Datetime: 06/30/2016 18:01 NBP Sys/Montse/Mean (mmHg): 119 (QS system process) : 80 (QS system process) : 93 (QS system process) Pulse: 71 (QS system process) LaborFlag: Antepartum (QS system process) Datetime: 06/30/2016 18:00 Monitor Mode: External; Palpation (Melissa Duenas RN) Frequency (min): 2-4 (Melissa Duenas RN) Quality: Mild (Melissa Duenas RN) Duration (sec): 60-70 (Melissa Duenas, RN) Duration Criteria: Less than Two 120 Second Contractions (Melissa Duenas, FREDDY) Pattern: Normal: <= 5 Contractions in 10 Minutes (Melissa Duenas RN) Resting Tone (Palpate): Relaxed (Melissa Duenas, RN) Contraction Comments: with irritability (Melissa Duenas, RN) Monitor Mode: External US (Melissa Duenas, RN) FHR Baseline Rate : 135 (Melissa Duenas RN) FHR Baseline Changes: No Baseline Change (Melissa Duenas, RN) Variability: Moderate 6-25 bpm (Melissa Duenas, RN) Accelerations: 15X15 (Melissa Duenas, RN) Decelerations: None (Melissa Duenas, RN) Datetime: 06/30/2016 17:54 Patient Position/Activity: Hands-Knees (Melissa Henrique, RN) Datetime: 06/30/2016 17:46 NBP Sys/Montse/Mean (mmHg): 120 (QS system process) : 62 (QS system process) : 86 (QS system process) Pulse: 82 (QS system process) Medication Comments: Vistaril 50 mg PO x1 now (Melissa Duenas, RN) LaborFlag: Antepartum (QS system process) Datetime: 06/30/2016 17:45 Communication Comments: order received from Dr. Souza for Vistaril 50 mg PO x1 now (Melissa Henrique, RN) Datetime: 06/30/2016 17:40 Pain Scale: 5 (Melissa Duenas RN) Pain Presence: Intermittent (Melissa Duenas RN) Pain Type: Cramping (Melissa Duenas RN) Pain Location: Abdomen (Melissa Duenas RN) Pain Goal: 1 (Melissa Duenas RN) Pain Assessment Comments: patient c/o pain 08/19 (Melissa Duenas RN) LaborFlag: Antepartum (QS system process) Datetime: 06/30/2016 17:30 NBP Sys/Montse/Mean (mmHg): 111 (QS system process) : 59 (QS system process) : 78 (QS system process) Pulse: 62 (QS system process) Monitor Mode: External; Palpation (Melissa Duenas RN) Frequency (min): 2-4 (Melissa Duenas RN) Quality: Mild (Melissa Duenas RN) Duration (sec): 60-70 (Melissa Duenas RN) Duration Criteria: Less than Two 120 Second Contractions (Melissa Duenas RN) Pattern: Normal: <= 5 Contractions in 10 Minutes (Melissa Duenas RN) Resting Tone (Palpate): Relaxed (Melissa Duenas RN) Contraction Comments: with irritability (Melissa Duenas RN) Monitor Mode: External US (Melissa Duenas RN) FHR Baseline Rate : 120 (Melissa Duenas RN) FHR Baseline Changes: No Baseline Change (Melissa Duenas RN) Variability: Moderate 6-25 bpm (Melissa Duenas RN) Accelerations: None (Melissa Duenas RN) Decelerations: None (Melissa Duenas RN) LaborFlag: Antepartum (QS system process) Datetime: 06/30/2016 17:15 NBP Sys/Montse/Mean (mmHg): 116 (QS system process) : 58 (QS system process) : 81 (QS system process) Pulse: 71 (QS system process) LaborFlag: Antepartum (QS system process) Datetime: 06/30/2016 17:02 NBP Sys/Montse/Mean (mmHg): 117 (QS system process) : 57 (QS system process) : 82 (QS system process) Pulse: 69 (QS system process) LaborFlag: Antepartum (QS system process) Datetime: 06/30/2016 17:00 Monitor Mode: External; Palpation (Melissa Duenas, FREDDY) Frequency (min): 3-4 (Melissa Duenas, RN) Quality: Mild (Melissa Duenas, RN) Duration (sec): 60-70 (Melissa Duenas, RN) Duration Criteria: Less than Two 120 Second Contractions (Melissa Duenas, RN) Pattern: Normal: <= 5 Contractions in 10 Minutes (Melissa Duenas, RN) Resting Tone (Palpate): Relaxed (Melissa Duenas, RN) Contraction Comments: with irritability (Melissa Duenas, RN) Monitor Mode: External US (Melissa Duenas, RN) FHR Baseline Rate : 130 (Melissa Duenas, RN) FHR Baseline Changes: No Baseline Change (Melissa Duenas, RN) Variability: Moderate 6-25 bpm (Melissa Duenas, RN) Accelerations: 10X10 (Melissa Duenas, RN) Decelerations: None (Melissa Duenas, RN) Datetime: 06/30/2016 16:46 NBP Sys/Montse/Mean (mmHg): 133 (QS system process) : 86 (QS system process) : 105 (QS system process) Pulse: 77 (QS system process) LaborFlag: Antepartum (QS system process) Datetime: 06/30/2016 16:31 NBP Sys/Montse/Mean (mmHg): 111 (QS system process) : 58 (QS system process) : 79 (QS system process) Pulse: 65 (QS system process) LaborFlag: Antepartum (QS system process) Datetime: 06/30/2016 16:30 Monitor Mode: External; Palpation (Melissa Duenas RN) Frequency (min): 2-4 (Melissa Duenas RN) Quality: Mild (Melissa Duenas RN) Duration (sec): 60-70 (Melissa Duenas RN) Duration Criteria: Less than Two 120 Second Contractions (Melissa Duenas RN) Pattern: Normal: <= 5 Contractions in 10 Minutes (Melissa Duenas RN) Resting Tone (Palpate): Relaxed (Melissa Duenas RN) Contraction Comments: with irritability (Melissa Duenas RN) Monitor Mode: External US (Melissa Duenas RN) FHR Baseline Rate : 125 (Melissa Duenas RN) FHR Baseline Changes: No Baseline Change (Melissa Duenas RN) Variability: Moderate 6-25 bpm (Melissa Duenas RN) Accelerations: 10X10 (Melissa Duenas RN) Decelerations: None (Melissa Duenas RN) Datetime: 06/30/2016 16:15 NBP Sys/Montse/Mean (mmHg): 122 (QS system process) : 74 (QS system process) : 93 (QS system process) Pulse: 75 (QS system process) LaborFlag: Antepartum (QS system process) Datetime: 06/30/2016 16:00 NBP Sys/Montse/Mean (mmHg): 126 (QS system process) : 79 (QS system process) : 99 (QS system process) Pulse: 76 (QS system process) Monitor Mode: External; Palpation (Melissa Duenas RN) Frequency (min): 2-4 (Melissa Duenas RN) Quality: Mild (Melissa Duenas RN) Duration (sec): 50-70 (Melissa Duenas RN) Duration Criteria: Less than Two 120 Second Contractions (Melissa Duenas RN) Pattern: Normal: <= 5 Contractions in 10 Minutes (Melissa Duenas RN) Resting Tone (Palpate): Relaxed (Melissa Duenas RN) Contraction Comments: with irritability (Melissa Duenas RN) Monitor Mode: External US (Melissa Duenas RN) FHR Baseline Rate : 125 (Melissa Duenas RN) FHR Baseline Changes: No Baseline Change (Melissa Duenas RN) Variability: Moderate 6-25 bpm (Melissa Duenas RN) Accelerations: 10X10 (Meilssa Duenas RN) Decelerations: None (Melissa Duenas RN) LaborFlag: Antepartum (QS system process) Datetime: 06/30/2016 15:45 NBP Sys/Montse/Mean (mmHg): 124 (QS system process) : 78 (QS system process) : 97 (QS system process) Pulse: 72 (QS system process) LaborFlag: Antepartum (QS system process) Datetime: 06/30/2016 15:31 NBP Sys/Montse/Mean (mmHg): 131 (QS system process) : 79 (QS system process) : 100 (QS system process) Pulse: 67 (QS system process) LaborFlag: Antepartum (QS system process) Datetime: 06/30/2016 15:30 Monitor Mode: External; Palpation (Melissa Duenas, RN) Frequency (min): irritability (Melissa Duenas, RN) Quality: Mild (Melissa Duenas, RN) Duration Criteria: Less than Two 120 Second Contractions (Melissa Duenas, RN) Pattern: Normal: <= 5 Contractions in 10 Minutes (Melissa Duenas, RN) Resting Tone (Palpate): Relaxed (Melissa Duenas, RN) Monitor Mode: External US (Melissa Duenas, RN) FHR Baseline Rate : 130 (Melissa Duenas, RN) FHR Baseline Changes: No Baseline Change (Melissa Duenas, RN) Variability: Moderate 6-25 bpm (Melissa Duenas, RN) Accelerations: None (Melissa Duenas, RN) Decelerations: None (Melissa Duenas, RN) Datetime: 06/30/2016 15:16 NBP Sys/Montse/Mean (mmHg): 127 (QS system process) : 74 (QS system process) : 95 (QS system process) Pulse: 68 (QS system process) LaborFlag: Antepartum (QS system process) Datetime: 06/30/2016 15:01 NBP Sys/Montse/Mean (mmHg): 110 (QS system process) : 65 (QS system process) : 83 (QS system process) Pulse: 68 (QS system process) LaborFlag: Antepartum (QS system process) Datetime: 06/30/2016 15:00 Monitor Mode: External; Palpation (Melissa Duenas, FREDDY) Frequency (min): irritability (Melissa Duenas, FREDDY) Quality: Mild (Melissa Duenas RN) Duration Criteria: Less than Two 120 Second Contractions (Melissa Duenas, FREDDY) Pattern: Normal: <= 5 Contractions in 10 Minutes (Mleissa Duenas, RN) Resting Tone (Palpate): Relaxed (Melissa Duenas, FREDDY) Monitor Mode: External US (Melissa Duenas, FREDDY) FHR Baseline Rate : 125 (Melissa Duenas RN) FHR Baseline Changes: No Baseline Change (Melissa Duenas, RN) Variability: Moderate 6-25 bpm (Melissa Duenas, RN) Accelerations: 10X10 (Melissa Duenas, RN) Decelerations: None (Melissa Duenas, FREDDY) Datetime: 06/30/2016 14:53 Pain Assessment Comments: patient resting peacefully (Melissa Duenas, RN) LaborFlag: Antepartum (QS system process) Datetime: 06/30/2016 14:45 NBP Sys/Montse/Mean (mmHg): 108 (QS system process) : 55 (QS system process) : 76 (QS system process) Pulse: 50 (QS system process) LaborFlag: Antepartum (QS system process) Datetime: 06/30/2016 14:31 NBP Sys/Montse/Mean (mmHg): 107 (QS system process) : 57 (QS system process) : 74 (QS system process) Pulse: 62 (QS system process) LaborFlag: Antepartum (QS system process) Datetime: 06/30/2016 14:30 Monitor Mode: External; Palpation (Melissa Duenas, RN) Frequency (min): irritability (Melissa Duenas, RN) Quality: Mild (Melissa Duenas, RN) Duration Criteria: Less than Two 120 Second Contractions (Melissa Duenas, RN) Pattern: Normal: <= 5 Contractions in 10 Minutes (Melissa Duenas, RN) Resting Tone (Palpate): Relaxed (Melissa Duenas, RN) Monitor Mode: External US (Melissa Duenas, RN) FHR Baseline Rate : 125 (Melissa Duenas, RN) FHR Baseline Changes: No Baseline Change (Melissa Duenas, RN) Variability: Moderate 6-25 bpm (Melissa Duenas, RN) Accelerations: None (Melissa Duenas, RN) Decelerations: None (Melissa Duenas, RN) Datetime: 06/30/2016 14:15 NBP Sys/Montse/Mean (mmHg): 106 (QS system process) : 62 (QS system process) : 77 (QS system process) Pulse: 57 (QS system process) LaborFlag: Antepartum (QS system process) Datetime: 06/30/2016 14:01 NBP Sys/Montse/Mean (mmHg): 108 (QS system process) : 62 (QS system process) : 80 (QS system process) Pulse: 67 (QS system process) LaborFlag: Antepartum (QS system process) Datetime: 06/30/2016 14:00 Monitor Mode: External; Palpation (Melissa Duenas RN) Frequency (min): irritability (Melissa Duenas RN) Quality: Mild (Melissa Duenas RN) Duration Criteria: Less than Two 120 Second Contractions (Melissa Duenas RN) Pattern: Normal: <= 5 Contractions in 10 Minutes (Melissa Duenas RN) Resting Tone (Palpate): Relaxed (Melissa Duenas RN) Monitor Mode: External US (Melissa Duenas RN) FHR Baseline Rate : 140 (Melissa Duenas RN) FHR Baseline Changes: No Baseline Change (Melissa Duenas RN) Variability: Moderate 6-25 bpm (Melissa Duenas RN) Accelerations: 15X15 (Melissa Duenas RN) Decelerations: None (Melissa Duenas RN) Cervical Ripening Agents: Cytotec @ 25 mcg (Melissa Duenas RN) Datetime: 06/30/2016 13:58 Communication Comments: order received from DrRaymond Souza for Cytotec 25 mcg PO x1 now (Melissa Duenas, RN) Datetime: 06/30/2016 13:52 Analgesics/Sedatives: Nubain (mg) @ 10 (Melissa Duenas RN) Datetime: 06/30/2016 13:47 Dilatation (cm): 1.0 (Melissa Duenas RN) Effacement (%): 25 (Melissa Duenas RN) Station: -1 (Melissa Duenas RN) Exam by: Mike Duenas RN (Melissa Henrique, RN) Vaginal Bleeding: None (Melissa Henrique, RN) Cervix, Consistency: Moderate (Melissa Henrique, RN) Cervix, Position: Midposition (Melissa Duenas, RN) Datetime: 06/30/2016 13:46 Patient Position/Activity: Left Extreme; Low Fowlers (Melissa Duenas, RN) Datetime: 06/30/2016 13:44 I/O Interventions: Up to BR (Melissa Henrique, RN) Datetime: 06/30/2016 13:42 Communication Comments: order received from Rosalee Gaitan, [facility] for Nubain 10 mg IV x1 now (Melissa Duenas, RN) Datetime: 06/30/2016 13:39 Communication Comments: patient c/o pain 5/5, tearful (Melissa Duenas, RN) Datetime: 06/30/2016 13:31 NBP Sys/Montse/Mean (mmHg): 112 (QS system process) : 56 (QS system process) : 74 (QS system process) Pulse: 76 (QS system process) LaborFlag: Antepartum (QS system process) Datetime: 06/30/2016 13:30 Monitor Mode: External; Palpation (Melissa Duenas, RN) Frequency (min): irritability (Melissa Duenas, RN) Quality: Mild (Melissa Duenas, RN) Duration Criteria: Less than Two 120 Second Contractions (Melissa Duenas, RN) Pattern: Normal: <= 5 Contractions in 10 Minutes (Melissa Duenas, RN) Resting Tone (Palpate): Relaxed (Melissa Duenas, RN) Monitor Mode: External US (Melissa Duenas, RN) FHR Baseline Rate : 140 (Melissa Duenas, RN) FHR Baseline Changes: No Baseline Change (Melissa Duenas, RN) Variability: Moderate 6-25 bpm (Melissa Duenas, RN) Accelerations: None (Melissa Duenas, RN) Decelerations: None (Melissa Duenas, RN) Datetime: 06/30/2016 13:01 NBP Sys/Montse/Mean (mmHg): 131 (QS system process) : 80 (QS system process) : 99 (QS system process) Pulse: 71 (QS system process) LaborFlag: Antepartum (QS system process) Datetime: 06/30/2016 13:00 Monitor Mode: External; Palpation (Melissa Duenas, RN) Frequency (min): irritability (Melissa Duenas, RN) Quality: Mild (Melissa Duenas, RN) Duration Criteria: Less than Two 120 Second Contractions (Melissa Duenas, RN) Pattern: Normal: <= 5 Contractions in 10 Minutes (Melissa Duenas, RN) Resting Tone (Palpate): Relaxed (Melissa Duenas, RN) Monitor Mode: External US (Melissa Duenas, RN) FHR Baseline Rate : 150 (Melissa Duenas, RN) FHR Baseline Changes: No Baseline Change (Melissa Duenas, RN) Variability: Moderate 6-25 bpm (Melissa Duenas, RN) Accelerations: 15X15 (Melissa Duenas, RN) Decelerations: None (Melissa Duenas, RN) Datetime: 06/30/2016 12:47 NBP Sys/Montse/Mean (mmHg): 106 (QS system process) : 66 (QS system process) : 81 (QS system process) Pulse: 75 (QS system process) LaborFlag: Antepartum (QS system process) Datetime: 06/30/2016 12:33 NBP Sys/Montse/Mean (mmHg): 114 (QS system process) : 57 (QS system process) : 76 (QS system process) Pulse: 75 (QS system process) LaborFlag: Antepartum (QS system process) Datetime: 06/30/2016 12:30 Monitor Mode: External; Palpation (Melissa Duenas, RN) Frequency (min): irritability (Melissa Duenas, RN) Quality: Mild (Melissa Duenas, RN) Duration Criteria: Less than Two 120 Second Contractions (Melissa Duenas, RN) Pattern: Normal: <= 5 Contractions in 10 Minutes (Melissa Duenas, RN) Resting Tone (Palpate): Relaxed (Melissa Duenas, RN) Monitor Mode: External US (Melissa Duenas, RN) FHR Baseline Rate : 145 (Melissa Duenas, RN) FHR Baseline Changes: No Baseline Change (Melissa Duenas, RN) Variability: Moderate 6-25 bpm (Melissa Duenas, RN) Accelerations: 15X15 (Melissa Duenas, RN) Decelerations: None (Melissa Duenas, RN) Datetime: 06/30/2016 12:15 NBP Sys/Montse/Mean (mmHg): 109 (QS system process) : 61 (QS system process) : 78 (QS system process) Pulse: 75 (QS system process) LaborFlag: Antepartum (QS system process) Datetime: 06/30/2016 12:00 NBP Sys/Montse/Mean (mmHg): 110 (QS system process) : 60 (QS system process) : 79 (QS system process) Pulse: 66 (QS system process) Monitor Mode: External; Palpation (Melissa Duenas RN) Frequency (min): irritability (Melissa Duenas RN) Quality: Mild (Melissa Duenas RN) Duration Criteria: Less than Two 120 Second Contractions (Melissa Duenas RN) Pattern: Normal: <= 5 Contractions in 10 Minutes (Melissa Duenas RN) Resting Tone (Palpate): Relaxed (Melissa Duenas RN) Monitor Mode: External US (Melissa Duenas RN) FHR Baseline Rate : 140 (Melissa Duenas RN) FHR Baseline Changes: No Baseline Change (Melissa Duenas RN) Variability: Moderate 6-25 bpm (Melissa Duenas RN) Accelerations: 15X15 (Melissa Duenas RN) Decelerations: None (Melissa Duenas RN) LaborFlag: Antepartum (QS system process) Datetime: 06/30/2016 11:46 NBP Sys/Montse/Mean (mmHg): 108 (QS system process) : 58 (QS system process) : 79 (QS system process) Pulse: 71 (QS system process) LaborFlag: Antepartum (QS system process) Datetime: 06/30/2016 11:30 Monitor Mode: External; Palpation (Melissa Duenas, RN) Frequency (min): irritability (Melissa Duenas, RN) Quality: Mild (Melissa Duenas, RN) Duration Criteria: Less than Two 120 Second Contractions (Melissa Duenas, RN) Pattern: Normal: <= 5 Contractions in 10 Minutes (Melissa Duenas, RN) Resting Tone (Palpate): Relaxed (Melissa Duenas, RN) Monitor Mode: External US (Melissa Duenas, RN) FHR Baseline Rate : 145 (Melissa Duenas, RN) FHR Baseline Changes: No Baseline Change (Melissa Duenas, RN) Variability: Moderate 6-25 bpm (Melissa Duenas, RN) Accelerations: 15X15 (Melissa Duenas, RN) Decelerations: None (Melissa Duenas, RN) Datetime: 06/30/2016 11:15 NBP Sys/Montse/Mean (mmHg): 103 (QS system process) : 55 (QS system process) : 72 (QS system process) Pulse: 71 (QS system process) LaborFlag: Antepartum (QS system process) Datetime: 06/30/2016 11:01 NBP Sys/Montse/Mean (mmHg): 108 (QS system process) : 60 (QS system process) : 78 (QS system process) Pulse: 84 (QS system process) LaborFlag: Antepartum (QS system process) Datetime: 06/30/2016 11:00 Monitor Mode: External; Palpation (Melissa Duenas RN) Frequency (min): irritability (Melissa Duenas RN) Quality: Mild (Melissa Duenas RN) Duration Criteria: Less than Two 120 Second Contractions (Melissa Duenas RN) Pattern: Normal: <= 5 Contractions in 10 Minutes (Melissa Henrique, RN) Resting Tone (Palpate): Relaxed (Melissa Duenas, RN) Monitor Mode: External US (Melissa Duenas, RN) FHR Baseline Rate : 140 (Melissa Duenas, RN) FHR Baseline Changes: No Baseline Change (Melissa Duenas, RN) Variability: Moderate 6-25 bpm (Melissa Duenas, RN) Accelerations: 15X15 (Melissa Duenas, RN) Decelerations: None (Melissa Duenas, RN) Datetime: 06/30/2016 10:54 I/O Interventions: Up to BR (Melissa Duenas, RN) Datetime: 06/30/2016 10:45 NBP Sys/Montse/Mean (mmHg): 117 (QS system process) : 69 (QS system process) : 86 (QS system process) Pulse: 86 (QS system process) LaborFlag: Antepartum (QS system process) Datetime: 06/30/2016 10:30 Monitor Mode: External; Palpation (Melissa Duenas, RN) Frequency (min): irritability (Melissa Duenas, RN) Quality: Mild (Melissa Henrique, RN) Duration Criteria: Less than Two 120 Second Contractions (Melissa Henrique, RN) Pattern: Normal: <= 5 Contractions in 10 Minutes (Melissa Henrique, RN) Resting Tone (Palpate): Relaxed (Melissabarbara Duenas, RN) Monitor Mode: External US (Melissa Henrique, RN) FHR Baseline Rate : 140 (Melissa Henrique, RN) FHR Baseline Changes: No Baseline Change (Melissa Henrique, RN) Variability: Moderate 6-25 bpm (Melissa Henrique, RN) Accelerations: 15X15 (Melissa Henrique, RN) Decelerations: None (Melissa Henrique, RN) Datetime: 06/30/2016 10:21 I/O Interventions: Up to BR (Melissa Henrique, RN) Datetime: 06/30/2016 10:16 NBP Sys/Montse/Mean (mmHg): 100 (QS system process) : 59 (QS system process) : 76 (QS system process) Pulse: 78 (QS system process) LaborFlag: Antepartum (QS system process) Datetime: 06/30/2016 10:15 Cervical Ripening Agents: Cytotec @ 50 mcg (Melissa Henrique, RN) Datetime: 06/30/2016 10:02 NBP Sys/Montse/Mean (mmHg): 120 (QS system process) : 71 (QS system process) : 90 (QS system process) Pulse: 78 (QS system process) LaborFlag: Antepartum (QS system process) Datetime: 06/30/2016 10:00 Monitor Mode: External; Palpation (Melissa Duenas, RN) Frequency (min): irritability (Melissa Duenas, RN) Quality: Mild (Melissa Henrique, RN) Duration Criteria: Less than Two 120 Second Contractions (Melissa Henrique, RN) Pattern: Normal: <= 5 Contractions in 10 Minutes (Melissa Henrique, RN) Resting Tone (Palpate): Relaxed (Melissabarbara Duenas, RN) Monitor Mode: External US (Melissabarbara Duenas, RN) FHR Baseline Rate : 140 (Melissa Henrique, RN) FHR Baseline Changes: No Baseline Change (Melissa Henrique, RN) Variability: Moderate 6-25 bpm (Melissa Henrique, RN) Accelerations: 15X15 (Melissa Henrique, RN) Decelerations: None (Melissa Henrique, RN) Datetime: 06/30/2016 09:56 Patient Position/Activity: Left Tilt; Semi-Fowlers (Melissa Henrique, RN) Datetime: 06/30/2016 09:30 Comments: patient off monitor to eat and shower (Melissa Henrique, RN) Datetime: 06/30/2016 09:00 Comments: patient off monitor to eat and shower (Melissa Henrique, RN) Datetime: 06/30/2016 08:41 Communication Comments: monitors removed for patient to eat breakfast and shower (Melissa Henrique, RN) Datetime: 06/30/2016 08:40 Communication Comments: order received from Dr. Souza for Cytotec 50 mg PO x1 after patient is off monitor for one hour (Melissa Duenas RN) Datetime: 06/30/2016 08:37 Dilatation (cm): 1.0 (Melissa Duenas RN) Effacement (%): 25 (Melissa Duenas RN) Station: -1 (Melissa Duenas RN) Exam by: Mike Duenas RN (Melissa Duenas RN) Vaginal Bleeding: None (Melissa Duenas RN) Cervix, Consistency: Moderate (Melissa Duenas RN) Cervix, Position: Midposition (Melissa Duenas RN) Datetime: 06/30/2016 08:34 Communication Comments: cervidil removed (Melissa Duenas RN) Datetime: 06/30/2016 08:30 Monitor Mode: External; Palpation (Melissa Duenas, RN) Frequency (min): 2-2.5 (Melissa Henrique, RN) Quality: Mild (Melissa Henrique, RN) Duration (sec): 70-90 (Melissa Henrique, RN) Duration Criteria: Less than Two 120 Second Contractions (Melissa Henrique, RN) Pattern: Normal: <= 5 Contractions in 10 Minutes (Melissa Henrique, RN) Resting Tone (Palpate): Relaxed (Melissa Henrique, RN) Monitor Mode: External US (Melissa Duenas, RN) FHR Baseline Rate : 130 (Melissa Henrique, RN) FHR Baseline Changes: No Baseline Change (Melissa Henrique, RN) Variability: Moderate 6-25 bpm (Melissa Henrique, RN) Accelerations: 15X15 (Melissa Henrique, RN) Decelerations: None (Melissa Henrique, RN) Datetime: 06/30/2016 08:00 Monitor Mode: External; Palpation (Melissa Henrique, RN) Frequency (min): 2-4 (Meilssa Duenas, RN) Quality: Mild (Melissa Henrique, RN) Duration (sec): 60-70 (Melissa Henrique, RN) Duration Criteria: Less than Two 120 Second Contractions (Melissa Henrique, RN) Pattern: Normal: <= 5 Contractions in 10 Minutes (Melissa Henrique, RN) Resting Tone (Palpate): Relaxed (Melissa Duenas RN) Contraction Comments: irritability (Melissa Duenas, RN) Monitor Mode: External US (Melissa Duenas RN) FHR Baseline Rate : 140 (Melissa Duenas RN) FHR Baseline Changes: No Baseline Change (Melissa Duenas RN) Variability: Moderate 6-25 [id number] (Melissa Duenas RN) Accelerations: 15X15 (Melissa Duenas, RN) Decelerations: None (Melissa Duenas, RN)
[2016-06-30] MEDS ORDERED: FENTANYL CITRATE INJ/PF 100 MCG/2 ML AMPUL ONE (20:20)
[2016-06-30] MEDS ORDERED: PHENYLEPHRINE HCL INJ/PF 10 MG/1 ML SDV ONE (20:21)
[2016-06-30] MEDS ORDERED: FENTANYL/BUPIVACAINE/NS/PF 200 MCG/100 ML RTUINJ EPI ONE (20:21)
[2016-06-30] MEDS ORDERED: BUPIVACAINE HCL 0.25 % INJ/PF (2.5 MG/1 ML) 30 ML VIAL ONE (20:21)
[2016-06-30] MEDS ORDERED: EPHEDRINE SULFATE INJ 50 MG/1 ML AMPULE ONE (20:21)
[2016-06-30] MEDS ORDERED: ONDANSETRON 4 MG TAB.RAPDIS PO ONE (20:45)
[2016-06-30] MEDS ORDERED: PROMETHAZINE HCL 25 MG TABLET PO ONE (20:45)
[2016-07-01] MEDS: RINGERS SOLUTION,LACTATED 1,000 ML IV PRN ×2 (01:01→01:06)
[2016-07-01] MEDS ORDERED: FENTANYL/BUPIVACAINE/NS/PF 200 MCG/100 ML RTUINJ EPI ONE (04:43)
[2016-07-01] MEDS: ZOLPIDEM TARTRATE 5 MG TABLET PO SCH (05:17)
--- NOTE | 2016-07-01 08:01 | L&D Flow Sheet ---
LD Flowsheet Datetime Report Generated by CPN: 07/01/2016 08:00 Datetime: 07/01/2016 07:36 Patient Position/Activity: Peanut Ball; Right Extreme (Natalya Dooley [facility]) Datetime: 07/01/2016 07:14 NBP Sys/Montse/Mean (mmHg): 143 (QS system process) : 88 (QS system process) : 110 (QS system process) Pulse: 78 (QS system process) Temperature (F): 99.0 (DUSTY Stokes) Temperature (C): 37.2 (QS system process) Level of Consciousness: Fully Conscious (DUSTY Stokes) DTR's/Clonus: DTRs 2+; No Clonus (DUSTY Stokes) Headache: Denies (DUSTY Stokes) Breath Sounds, Left: Clear and Equal (DUSTY Stokes) Breath Sounds, Right: Clear and Equal (DUSTY Stokes) Nausea/Vomiting: Denies (DUSTY Stokes) RUQ Epigastric Pain: Denies (DUSTY Stokes) LaborFlag: Labor (QS system process) Datetime: 07/01/2016 07:10 Communication: Report Given to @ Zoe Dooley RN (Miranda Nuno RN) Communication Comments: Care relinquished at this time. (Miranda Nuno RN) Datetime: 07/01/2016 07:09 NBP Sys/Montse/Mean (mmHg): 139 (QS system process) : 91 (QS system process) : 110 (QS system process) Pulse: 71 (QS system process) LaborFlag: Labor (QS system process) Datetime: 07/01/2016 07:00 Stage of : Labor (Miranda Nuno RN) Respirations: 18 (Miranda Nuno RN) Monitor Mode: External (Miranda Nuno RN) Frequency (min): 2-2.5 (Miranda Nuno RN) Quality: Moderate (Miranda Nuno RN) Duration (sec): 50-80 (Miranda Nuno RN) Pattern: Normal: <= 5 Contractions in 10 Minutes (Miranda Nuno RN) Resting Tone (Palpate): Relaxed (Miranda Nuno RN) Monitor Mode: External US (Miranda Nuno RN) FHR Baseline Rate : 140 (Miranda Nuno RN) Variability: Minimal - Undetectable to <=5 bpm (Miranda Nuno RN) Accelerations: 10X10 (Miranda Nuno RN) Decelerations: Early (Miranda Nuno RN) Pain Scale: 3 (Miranda Nuno RN) Pain Presence: Intermittent (Miranda Nuno RN) Pain Type: Pressure (Miranda Nuno RN) Pain Location: Perineum (Miranda Nuno RN) Pain Goal: 1 (Miranda Nuno RN) Pain Relief Measures: Comfort Measures (Miranda Nuno RN) Pain Coping: Talking Through Contractions (Miranda Nuno RN) Comfort Measures: Breathing/Relaxation; Family Support (Miranda Nuno RN) Communication: RN at Bedside; RN Reviewed Strip (Miranda Nuno RN) LaborFlag: Labor (QS system process) Datetime: 07/01/2016 06:56 Patient Position/Activity: Tailors (Miranda Nuno, RN) Datetime: 07/01/2016 06:48 Dilatation (cm): 6.5 (Miranda Nuno, RN) Effacement (%): 100 (Miranda Nuno, RN) Station: 1 (Miranda Nuno, RN) Exam by: B Nuno, RN (Miranda Nuno, RN) Vaginal Bleeding: Normal Show (Miranda Nuno, RN) Cervix, Consistency: Soft (Miranda Nuno, RN) Cervix, Position: Midposition (Miranda Nuno, RN) Datetime: 07/01/2016 06:45 Stage of : Antepartum (Miranda Nuno, RN) Monitor Mode: External (Miranda Nuno, RN) Frequency (min): 2-3 (Miranda Nuno, RN) Quality: Moderate (Miranda Nuno, RN) Duration (sec): 50-90 (Miranda Nuno, RN) Pattern: Normal: <= 5 Contractions in 10 Minutes (Miranda Nuno, RN) Resting Tone (Palpate): Relaxed (Miranda Nuno, RN) Monitor Mode: External US (Miranda Nuno, RN) FHR Baseline Rate : 140 (Miranda Nuno, RN) Variability: Moderate 6-25 bpm (Miranda Nuno, RN) Accelerations: 15X15 (Miranda Nuno, RN) Decelerations: None (Miranda Nuno, RN) Communication: RN at Bedside; RN Reviewed Strip (Miranda Nuno, RN) Datetime: 07/01/2016 06:30 Stage of : Antepartum (Miranda Nuno, RN) Monitor Mode: External; Palpation (Miranda Nuno, RN) Frequency (min): 3-3.5 (Miranda Nuno, RN) Quality: Moderate (Miranda Nuno, RN) Duration (sec): 40-70 (Miranda Nuno, RN) Pattern: Normal: <= 5 Contractions in 10 Minutes (Miranda Nuno, RN) Monitor Mode: External US (Miranda Nuno, RN) FHR Baseline Rate : 140 (Miranda Nuno, RN) Variability: Minimal - Undetectable to <=5 bpm (Miranda Nuno, RN) Accelerations: None (Miranda Nuno, RN) Decelerations: Early (Miranda Nuno, RN) Communication: RN Reviewed Strip (Miranda Nuno, RN) Datetime: 07/01/2016 06:15 Stage of : Antepartum (Miranda Nuno, RN) Monitor Mode: External (Miranda Nuno, RN) Frequency (min): 3-4 (Miranda Nuno, RN) Quality: Moderate (Miranda Nuno, RN) Duration (sec): 60-80 (Miranda Nuno, RN) Pattern: Normal: <= 5 Contractions in 10 Minutes (Miranda Nuno, RN) Resting Tone (Palpate): Relaxed (Miranda Nuno, RN) Monitor Mode: External US (Miranda Nuno, RN) FHR Baseline Rate : 150 (Miranda Nuno, RN) Variability: Moderate 6-25 bpm (Miranda Nuno, RN) Accelerations: 15X15 (Miranda Nuno, RN) Decelerations: None (Miranda Nuno, RN) Communication: RN Reviewed Strip (Miranda Nuno, RN) Datetime: 07/01/2016 06:00 Stage of : Antepartum (Miranda Nuno, RN) Monitor Mode: External; Palpation (Miranda Nuno, RN) Frequency (min): 2-2.5 (Miranda Nuno, RN) Quality: Moderate (Miranda Nuno, RN) Duration (sec): 40-70 (Miranda Nuno, RN) Pattern: Normal: <= 5 Contractions in 10 Minutes (Miranda Nuno, RN) Monitor Mode: External US (Miranda Nuno, RN) FHR Baseline Rate : 150 (Miranda Nuno, RN) Variability: Moderate 6-25 bpm (Miranda Nuno, RN) Accelerations: 15X15 (Miranda Nuno, RN) Decelerations: None (Miranda Nuno, RN) Communication: RN Reviewed Strip (Miranda Nuno, RN) Datetime: 07/01/2016 05:45 Stage of : Antepartum (Miranda Nuno, RN) Respirations: 18 (Miranda Nuno, RN) Monitor Mode: External (Miranda Nuno, RN) Monitor Interventions for UA: [place] Adjusted (Mrianda Nuno, RN) Frequency (min): 2-3 (Miranda Nuno, RN) Quality: Mild/Moderate (Miranda Nuno, RN) Duration (sec): 60-90 (Miranda Nuno, RN) Pattern: Normal: <= 5 Contractions in 10 Minutes (Miranda Nuno, RN) Monitor Mode: External US (Miranda Nuno RN) Monitor Interventions for FHR: Ultrasound Adjusted (Miranda Nuno RN) FHR Baseline Rate : 150 (Miranda Nuno RN) Variability: Moderate 6-25 bpm (Miranda Nuno RN) Accelerations: 10X10 (Miradna Nuno RN) Decelerations: Early (Miranda Nuno RN) Pain Scale: 1 (Miranda Nuno RN) Pain Presence: Constant (Miranda Nuno RN) Pain Type: Cramping (Miranda Nuno RN) Pain Location: Left Hip (Miranda Nnuo RN) Pain Goal: 0 (Miranda Nuno RN) Pain Coping: Talking Through Contractions (Miranda Nuno RN) Comfort Measures: Breathing/Relaxation; Rocking Chair (Miarnda Nuno RN) Communication: RN at Bedside; RN Reviewed Strip (Miranda Nuno RN) LaborFlag: Antepartum (QS system process) Datetime: 07/01/2016 05:43 Monitor Interventions for UA: [place] Adjusted (Miranda Nuno RN) Monitor Interventions for FHR: Ultrasound Adjusted (Miranda Nuno RN) Datetime: 07/01/2016 05:42 Patient Position/Activity: Left Lateral; Low Fowlers (Miranda Nuno, RN) Datetime: 07/01/2016 05:30 Stage of : Antepartum (Miranda Nuno, RN) Monitor Mode: External (Miranda Nuno, RN) Frequency (min): 2-3.5 (Miranda Nuno, RN) Quality: Mild/Moderate (Miranda Nuno, RN) Duration (sec): 70-100 (Miranda Nuno, RN) Pattern: Normal: <= 5 Contractions in 10 Minutes (Miranda Nuno, RN) Monitor Mode: External US (Miranda Nuno, RN) FHR Baseline Rate : 150 (Miranda Nuno, RN) Variability: Minimal - Undetectable to <=5 bpm (Miranda Nuno, RN) Accelerations: None (Miranda Nuno, RN) Decelerations: Early (Miranda Nuno, RN) Communication: RN at Bedside; RN Reviewed Strip (Miranda Nuno, RN) Datetime: 07/01/2016 05:15 Stage of : Antepartum (Miranda Nuno RN) Respirations: 18 (Miranda Nuno RN) Monitor Mode: External (Miranda Nuno, FREDDY) Frequency (min): 1.5-3 (Miranda Nuno RN) Quality: Mild/Moderate (Miranda Nuno RN) Duration (sec): 70-90 (Miranda Nuno, FREDDY) Pattern: Normal: <= 5 Contractions in 10 Minutes (Miranda Nuno RN) Monitor Mode: External US (Miranda Nuno RN) FHR Baseline Rate : 155 (Miranda Nuno RN) Variability: Moderate 6-25 bpm (Miranda Nuno, RN) Accelerations: 10X10 (Miranda Nuno, RN) Decelerations: Late (Miranda Nuno RN) Pain Scale: 0 (Miranda Nuno RN) Pain Presence: None/Denies (Miranda Nuno RN) Pain Type: N/A (Miranda Nuno, FREDDY) Pain Coping: Talking Through Contractions; Sleeping (Miranda Nuno RN) Communication: RN at Bedside; RN Reviewed Strip (Miranda Nuno RN) LaborFlag: Antepartum (QS system process) Datetime: 07/01/2016 05:05 Temperature (F): 99.2 (Miranda Nuno RN) Temperature (C): 37.3 (QS system process) Communication: Provider at Bedside (Miranda Nuno, RN) Communication Comments: Dr Faria at bedside to change out epidural bag. (Miranda Nuno RN) LaborFlag: Antepartum (QS system process) Datetime: 07/01/2016 05:00 Stage of : Antepartum (Miranda Nuno, RN) Monitor Mode: External (Miranda Nuno, RN) Frequency (min): 3-4 (Miranda Nuno, RN) Quality: Mild/Moderate (Miranda Nuno, RN) Duration (sec): 70-100 (Miranda Nuno, RN) Pattern: Normal: <= 5 Contractions in 10 Minutes (Miranda Nuno, RN) Monitor Mode: External US (Miranda Nuno, RN) FHR Baseline Rate : 155 (Miranda Nuno, RN) Variability: Moderate 6-25 bpm (Miranda Nuno, RN) Accelerations: 10X10 (Miranda Nuno, RN) Decelerations: None (Miranda Nuno, RN) Communication: RN Reviewed Strip (Miranda Nuno, RN) Datetime: 07/01/2016 04:45 Stage of : Antepartum (Miranda Nuno, RN) Monitor Mode: External (Miranda Nuno, RN) Frequency (min): 2-3 (Miranda Nuno, RN) Quality: Mild/Moderate (Miranda Nuno, RN) Duration (sec): 60-90 (Miranda Nuno, RN) Pattern: Normal: <= 5 Contractions in 10 Minutes (Miranda Nuno, RN) Monitor Mode: External US (Miranda Nuno, RN) FHR Baseline Rate : 155 (Miranda Nuno, RN) Variability: Moderate 6-25 bpm (Miranda Nuno, RN) Accelerations: 10X10 (Miranda Nuno, RN) Decelerations: None (Miranda Nuno, RN) Communication: RN Reviewed Strip (Miranda Nuno, RN) Datetime: 07/01/2016 04:30 Stage of : Antepartum (Miranda Nuno, RN) Monitor Mode: External (Miranda Nuno, RN) Frequency (min): 2-3 (Miranda Nuno, RN) Quality: Mild/Moderate (Miranda Nuno, RN) Duration (sec): 70-100 (Miranda Nuno, RN) Pattern: Normal: <= 5 Contractions in 10 Minutes (Miranda Nuno, RN) Monitor Mode: External US (Miranda Nuno, RN) FHR Baseline Rate : 155 (Miranda Nuno, RN) Variability: Moderate 6-25 bpm (Miranda Nuno, RN) Accelerations: 15X15 (Miranda Nuno, RN) Decelerations: None (Miranda Nuno, RN) Communication: RN Reviewed Strip (Miranda Nuno, RN) Datetime: 07/01/2016 04:15 Stage of : Antepartum (Miranda Nuno, RN) Monitor Mode: External (Miranda Nuno, RN) Frequency (min): 2-3 (Miranda Nuno, RN) Quality: Mild/Moderate (Miranda Nuno, RN) Duration (sec): 70-90 (Miranda Nuno, RN) Pattern: Normal: <= 5 Contractions in 10 Minutes (Miranda Nuno, RN) Monitor Mode: External US (Miranda Nuno, RN) FHR Baseline Rate : 155 (Miranda Nuno, RN) Variability: Minimal - Undetectable to <=5 bpm (Miranda Nuno, RN) Accelerations: 10X10 (Miranda Nuno, RN) Decelerations: None (Miranda Nuno, RN) Communication: RN Reviewed Strip (Miranda Nuno, RN) Datetime: 07/01/2016 04:09 NBP Sys/Montse/Mean (mmHg): 128 (QS system process) : 74 (QS system process) : 93 (QS system process) Pulse: 75 (QS system process) LaborFlag: Antepartum (QS system process) Datetime: 07/01/2016 04:00 Stage of : Antepartum (Miranda Nuno, FREDDY) Respirations: 18 (Miranda Nuno, RN) Monitor Mode: External; Palpation (Miranda Nuno, RN) Frequency (min): 2-3 (Miranda Nuno, RN) Quality: Mild/Moderate (Miranda Nuno, RN) Duration (sec): 70-100 (Miranda Nuno, RN) Pattern: Normal: <= 5 Contractions in 10 Minutes (Miranda Nuno, RN) Resting Tone (Palpate): Relaxed (Miranda Nuno, RN) Monitor Mode: External US (Miranda Nuno, RN) FHR Baseline Rate : 150 (Miranda Nuno, RN) Variability: Moderate 6-25 bpm (Miranda Nuno, RN) Accelerations: 15X15 (Miranda Nuno, RN) Decelerations: None (Miranda Nuno, RN) Pain Scale: 0 (Miranda Nuno, RN) Pain Presence: None/Denies (Miranda Nuno, RN) Pain Type: N/A (Miranda Nuno, RN) Pain Coping: Talking Through Contractions; Sleeping (Miranda Nuno RN) Communication: RN at Bedside; RN Reviewed Strip (Miranda Nuno RN) LaborFlag: Antepartum (QS system process) Datetime: 07/01/2016 03:58 Temperature (F): 99.4 (Miranda Nuno, RN) Temperature (C): 37.4 (QS system process) LaborFlag: Antepartum (QS system process) Datetime: 07/01/2016 03:53 Patient Position/Activity: Right Tilt; Low Fowlers (Miranda Nuno, RN) Datetime: 07/01/2016 03:45 Stage of : Antepartum (Miranda Nuno, RN) Monitor Mode: External (Miarnda Nuno, RN) Frequency (min): 3-3.5 (Miranda Nuno, RN) Quality: Mild/Moderate (Miranda Nuno, RN) Duration (sec): 90-120 (Miranda Nuno, RN) Pattern: Normal: <= 5 Contractions in 10 Minutes (Miranda Nuno, RN) Monitor Mode: External US (Miranda Nuno, RN) FHR Baseline Rate : 150 (Miranda Nuno, RN) Variability: Moderate 6-25 bpm (Miranda Nuno, RN) Accelerations: 15X15 (Miranda Nuno, RN) Decelerations: None (Miranda Nuno, RN) Communication: RN Reviewed Strip (Miranda Nuno, RN) Datetime: 07/01/2016 03:30 Stage of : Antepartum (Miranda Nuno, RN) Monitor Mode: External (Miranda Nuno, RN) Frequency (min): 1-3 (Miranda Nuno, RN) Quality: Mild/Moderate (Miranda Nuno, RN) Duration (sec): 40-110 (Miranda Nuno, RN) Pattern: Normal: <= 5 Contractions in 10 Minutes (Miranda Nuno, RN) Monitor Mode: External US (Miranda Nuno, RN) FHR Baseline Rate : 150 (Miranda Nuno, RN) Variability: Moderate 6-25 bpm (Miranda Nuno, RN) Accelerations: 15X15 (Miranda Nuno, RN) Decelerations: None (Miranda Nuno, RN) Communication: RN Reviewed Strip (Miranda Nuno, RN) Datetime: 07/01/2016 03:15 Stage of : Antepartum (Miranda Nuno, RN) Monitor Mode: External (Miranda Nuno, RN) Frequency (min): 3-3.5 (Miranda Nuno, RN) Quality: Mild/Moderate (Miranda Nuno, RN) Duration (sec): 70-110 (Miranda Nuno, RN) Pattern: Normal: <= 5 Contractions in 10 Minutes (Miranda Nuno, RN) Monitor Mode: External US (Miranda Nuno, RN) FHR Baseline Rate : 150 (Miranda Nuno, RN) Variability: Moderate 6-25 bpm (Miranda Nuno, RN) Accelerations: 15X15 (Miranda Nuno, RN) Decelerations: None (Miranda Nuno, RN) Communication: RN Reviewed Strip (Miranda Nuno, RN) Datetime: 07/01/2016 03:00 Stage of : Antepartum (Miranda Nuno, RN) Monitor Mode: External; Palpation (Miranda Nuno, RN) Frequency (min): 1-3 (Miranda Nuno, RN) Quality: Mild/Moderate (Miranda Nuno, RN) Duration (sec): 70-90 (Miranda Nuno, RN) Pattern: Normal: <= 5 Contractions in 10 Minutes (Miranda Nuno, RN) Resting Tone (Palpate): Relaxed (Miranda Nuno, RN) Monitor Mode: External US (Miranda Nuno, RN) FHR Baseline Rate : 150 (Miranda Nuno, RN) Variability: Moderate 6-25 bpm (Miranda Nuno, RN) Accelerations: 15X15 (Miranda Nuno, RN) Decelerations: None (Miranda Nuno, RN) Communication: RN Reviewed Strip (Miranda Nuno, RN) Datetime: 07/01/2016 02:45 Stage of : Antepartum (Miranda Nuno, RN) Monitor Mode: External (Miranda Nuno, RN) Frequency (min): 3-3.5 (Miranda Nuno, RN) Quality: Mild/Moderate (Miranda Nuno, RN) Duration (sec): 60-120 (Miranda Nuno, RN) Pattern: Normal: <= 5 Contractions in 10 Minutes (Miranda Nuno, RN) Monitor Mode: External US (Miranda Nuno, RN) FHR Baseline Rate : 150 (Miranda Nuno, RN) Variability: Moderate 6-25 bpm (Miranda Nuno, RN) Accelerations: 15X15 (Miranda Nuno, RN) Decelerations: None (Miranda Nuno, RN) Communication: RN Reviewed Strip (Miranda Nuno, RN) Datetime: 07/01/2016 02:38 NBP Sys/Montse/Mean (mmHg): 130 (QS system process) : 67 (QS system process) : 92 (QS system process) Pulse: 74 (QS system process) LaborFlag: Antepartum (QS system process) Datetime: 07/01/2016 02:30 Stage of : Antepartum (Miranda Nuno, RN) Monitor Mode: External (Miranda Nuno, RN) Frequency (min): 2-3 (Miranda Nuno, RN) Quality: Mild/Moderate (Miranda Nuno, RN) Duration (sec): 50-80 (Miranda Nuno, RN) Pattern: Normal: <= 5 Contractions in 10 Minutes (Miranda Nuno, RN) Monitor Mode: External US (Miranda Nuno, RN) FHR Baseline Rate : 150 (Miranda Nuno, RN) Variability: Moderate 6-25 bpm (Miranda Nuno, RN) Accelerations: 15X15 (Miranda Nuno, RN) Decelerations: None (Miranda Nuno, RN) Communication: RN Reviewed Strip (Miranda Nuno, RN) Datetime: 07/01/2016 02:15 Stage of : Antepartum (Miranda Nuno, RN) Monitor Mode: External (Miranda Nuno, RN) Frequency (min): 2-4.5 (Miranda Nuno, RN) Quality: Mild/Moderate (Miranda Nuno, RN) Duration (sec): 50-100 (Miranda Nuno, RN) Pattern: Normal: <= 5 Contractions in 10 Minutes (Miranda Nuno, RN) Monitor Mode: External US (Miranda Nuno, RN) FHR Baseline Rate : 150 (Miranda Nuno, RN) Variability: Moderate 6-25 bpm (Miranda Nuno, RN) Accelerations: 15X15 (Miranda Nuno, RN) Decelerations: None (Miranda Nuno, RN) Communication: RN Reviewed Strip (Miranda Nuno, RN) Datetime: 07/01/2016 02:00 Stage of : Antepartum (Miranda Nuno, RN) Respirations: 18 (Miranda Nuno, RN) Monitor Mode: External (Miranda Nuno, RN) Frequency (min): 2-4 (Miranda Nuno, RN) Quality: Mild/Moderate (Miranda Nuno, RN) Duration (sec): 50-100 (Miranda Nuno, RN) Pattern: Normal: <= 5 Contractions in 10 Minutes (Miranda Nuno, RN) Monitor Mode: External US (Miranda Nuno, RN) FHR Baseline Rate : 150 (Miranda Nuno, RN) Variability: Moderate 6-25 bpm (Miranda Nuno, RN) Accelerations: 10X10 (Miranda Nuno, RN) Decelerations: None (Miranda Nuno, RN) Pain Coping: Sleeping (Miranda Nuno, RN) Communication: RN at Bedside; RN Reviewed Strip (Miranda Nuno, RN) LaborFlag: Antepartum (QS system process) Datetime: 07/01/2016 01:45 Stage of : Antepartum (Miranda Nuno, RN) Monitor Mode: External (Miranda Nuno, RN) Frequency (min): 1-3.5 (Miranda Nuno, RN) Quality: Mild/Moderate (Miranda Nuno, RN) Duration (sec): 40-110 (Miranda Nuno, RN) Pattern: Normal: <= 5 Contractions in 10 Minutes (Miranda Nuno, RN) Monitor Mode: External US (Miranda Nuno, RN) FHR Baseline Rate : 150 (Miranda Nuno, RN) Variability: Moderate 6-25 bpm (Miranda Nuno, RN) Accelerations: 15X15 (Miranda Nuno, RN) Decelerations: Variable (Miranad Nuno, RN) Communication: RN Reviewed Strip (Miranda Nuno, RN) Datetime: 07/01/2016 01:30 Stage of : Antepartum (Miranda Nuno, RN) Monitor Mode: External (Miranda Nuno, RN) Frequency (min): 2.5-4 (Miranda Nuno, RN) Quality: Mild/Moderate (Miranda Nuno, RN) Duration (sec): 50-80 (Miranda Nuno, RN) Pattern: Normal: <= 5 Contractions in 10 Minutes (Miranda Nuno, RN) Monitor Mode: External US (Miranda Nuno, RN) FHR Baseline Rate : 150 (Miranda Nuno, RN) Variability: Moderate 6-25 bpm (Miranda Nuno, RN) Accelerations: 15X15 (Miranda Nuno, RN) Decelerations: None (Miranda Nuno, RN) Communication: RN Reviewed Strip (Miranda Nuno, RN) Datetime: 07/01/2016 01:15 Stage of : Antepartum (Miranda Nuno, RN) Respirations: 18 (Miranda Nuno, RN) Temperature (F): 98.4 (Miranda Nuno, RN) Temperature (C): 36.9 (QS system process) Monitor Mode: External (Miranda Nuno RN) Frequency (min): 2-3 (Miranda Nuno RN) Quality: Mild/Moderate (Miranda Nuno RN) Duration (sec): 40-100 (Miranda Nuno RN) Pattern: Normal: <= 5 Contractions in 10 Minutes (Miranda Nuno RN) Monitor Mode: External US (Miranda Nuno RN) Variability: Minimal - Undetectable to <=5 bpm (Miranda Nuno RN) Accelerations: None (Miranda Nuno RN) Decelerations: None (Miranda Nuno RN) Pain Scale: 0 (Miranda Nuno RN) Pain Presence: None/Denies (Miranda Nuno RN) Pain Type: N/A (Miranda Nuno RN) Pain Coping: Talking Through Contractions (Miranda Nuno RN) I/O Interventions: Ice Chips Given (Miranda Nuno RN) Communication: RN at Bedside; RN Reviewed Strip (Miranda Nuno RN) LaborFlag: Antepartum (QS system process) Datetime: 07/01/2016 01:05 NBP Sys/Montse/Mean (mmHg): 128 (QS system process) : 65 (QS system process) : 88 (QS system process) Pulse: 82 (QS system process) IV/Blood Work: New IV Bag Hung (Miranda Nuno RN) LaborFlag: Antepartum (QS system process) Datetime: 07/01/2016 01:00 Stage of : Antepartum (Miranda Nuno, RN) Monitor Mode: External (Miranda Nuno, RN) Frequency (min): 3.5-4 (Miranda Nuno, RN) Quality: Mild/Moderate (Miranda Nuno, RN) Duration (sec): 40-80 (Miranda Nuno, RN) Pattern: Normal: <= 5 Contractions in 10 Minutes (Miranda Nuno, RN) Resting Tone (Palpate): Relaxed (Miranda Nuno, RN) Monitor Mode: External US (Miranda Nuno, RN) FHR Baseline Rate : 150 (Miranda Nuno, RN) Variability: Moderate 6-25 bpm (Miranda Nuno, RN) Accelerations: 15X15 (Miranda Nuno, RN) Decelerations: None (Miranda Nuno, RN) Communication: RN Reviewed Strip (Miranda Nuno, RN) Datetime: 07/01/2016 00:45 Stage of : Antepartum (Miranda Nuno, RN) Respirations: 18 (Miranda Nuno, RN) Monitor Mode: External (Miranda Nuno, RN) Frequency (min): 3.5-5 (Miranda Nuno, RN) Quality: Mild/Moderate (Miranda Nuno, RN) Duration (sec): 60-80 (Miranda Nuno, RN) Pattern: Normal: <= 5 Contractions in 10 Minutes (Miranda Nuno, RN) Monitor Mode: External US (Miranda Nuno, RN) FHR Baseline Rate : 150 (Miranda Nuno, RN) Variability: Moderate 6-25 bpm (Miranda Nuno, RN) Accelerations: 15X15 (Miranda Nuno, RN) Decelerations: None (Miranda Nuno, RN) Pain Coping: Sleeping (Miranda Nuno, RN) Communication: RN at Bedside; RN Reviewed Strip (Miranda Nuno, RN) LaborFlag: Antepartum (QS system process) Datetime: 07/01/2016 00:34 NBP Sys/Montse/Mean (mmHg): 121 (QS system process) : 65 (QS system process) : 86 (QS system process) Pulse: 86 (QS system process) LaborFlag: Antepartum (QS system process) Datetime: 07/01/2016 00:30 Stage of : Antepartum (Miranda Nuno, RN) Monitor Mode: External (Miranda Nuno, RN) Frequency (min): 3-5 (Miranda Nuno, RN) Quality: Mild (Miranda Nuno, RN) Duration (sec): 60-100 (Miranda Nuno, RN) Resting Tone (Palpate): Relaxed (Miranda Nuno, RN) Monitor Mode: External US (Miranda Nuno, RN) FHR Baseline Rate : 150 (Miranda Nuno, RN) Variability: Moderate 6-25 bpm (Miranda Nuno, RN) Accelerations: 15X15 (Miranda Nuno, RN) Decelerations: Early (Miranda Nuno, RN) Communication: RN Reviewed Strip (Miranda Nuno, RN) Datetime: 07/01/2016 00:15 Stage of : Antepartum (Miranda Nuno, RN) Monitor Mode: External (Miranda Nuno, RN) Frequency (min): 3-4 (Miranda Nuno, RN) Quality: Mild/Moderate (Miranda Nuno, RN) Duration (sec): 70-130 (Miranda Nuno, RN) Pattern: Normal: <= 5 Contractions in 10 Minutes (Miranda Nuno, RN) Monitor Mode: External US (Miranda Nuno, RN) FHR Baseline Rate : 150 (Miranda Nuno, RN) Variability: Moderate 6-25 bpm (Miranda Nuno, RN) Accelerations: 15X15 (Miranda Nuno, RN) Decelerations: None (Miranda Nuno, RN) Communication: RN Reviewed Strip (Miranda Nuno, RN) Datetime: 07/01/2016 00:05 NBP Sys/Montse/Mean (mmHg): 124 (QS system process) : 66 (QS system process) : 88 (QS system process) Pulse: 80 (QS system process) LaborFlag: Antepartum (QS system process) Datetime: 07/01/2016 00:00 Stage of : Antepartum (Miranda Nuno, RN) Monitor Mode: External (Miranda Nuno, RN) Frequency (min): 2.5-3 (Miranda Nuno, RN) Quality: Mild (Miranda Nuno, RN) Duration (sec): 40-80 (Miranda Nuno, RN) Pattern: Normal: <= 5 Contractions in 10 Minutes (Miranda Nuno, RN) Monitor Mode: External US (Miranda Nuno, RN) FHR Baseline Rate : 150 (Miranda Nuno, RN) Variability: Moderate 6-25 bpm (Miranda Nuno, RN) Accelerations: 15X15 (Miranda Nuno, RN) Decelerations: Early (Miranda Nuno, RN) Communication: RN Reviewed Strip (Miranda Nuno, RN) Datetime: 06/30/2016 23:45 Respirations: 16 (Miranda Nuno, RN) Monitor Mode: External (Miranda Nuno, RN) Frequency (min): 2-3 (Miranda Nuno, RN) Quality: Mild/Moderate (Miranda Nuno, RN) Duration (sec): 50-90 (Miranda Nuno, RN) Pattern: Normal: <= 5 Contractions in 10 Minutes (Miranda Nuno, RN) Resting Tone (Palpate): Relaxed (Miranda Nuno, RN) Monitor Mode: External US (Miranda Nuno, RN) FHR Baseline Rate : 150 (Miranda Nuno, RN) Variability: Moderate 6-25 bpm (Miranda Nuno, RN) Accelerations: 15X15 (Miranda Nuno, RN) Decelerations: None (Miranda Nuno, RN) Pain Coping: Sleeping (Miranda Nuno, RN) Communication: RN at Bedside (Miranda Nuno, RN) LaborFlag: Antepartum (QS system process) Datetime: 06/30/2016 23:34 NBP Sys/Montse/Mean (mmHg): 131 (QS system process) : 73 (QS system process) : 94 (QS system process) Pulse: 82 (QS system process) LaborFlag: Antepartum (QS system process) Datetime: 06/30/2016 23:30 Monitor Mode: External (Jaimee Derrell, RN) Frequency (min): 0 (Jaimee Derrell, RN) Resting Tone (Palpate): Relaxed (Jaimee Derrell, RN) Contraction Comments: Irritability noted. (Jaimee Derrell, RN) Monitor Mode: External US (Jaimee Derrell, RN) FHR Baseline Rate : 150 (Jaimee Derrell, RN) FHR Baseline Changes: No Baseline Change (Jaimee Derrell, RN) Variability: Moderate 6-25 bpm (Jaimee Derrell, RN) Accelerations: 15X15 (Jaimee Derrell, RN) Decelerations: None (Jaimee Derrell, RN) Datetime: 06/30/2016 23:15 Monitor Mode: External (Jaimee Derrell, RN) Frequency (min): 2-4 (Jaimee Derrell, RN) Quality: Mild/Moderate (Jaimee Derrell, RN) Duration (sec): 40-50 (Jaimee Derrell, RN) Pattern: Normal: <= 5 Contractions in 10 Minutes (Jaimee Derrell, RN) Resting Tone (Palpate): Relaxed (Jaimee Derrell, RN) Monitor Mode: External US (Jaimee Derrell, RN) FHR Baseline Rate : 140 (Jaimee Derrell, RN) FHR Baseline Changes: No Baseline Change (Jaimee Derrell, RN) Variability: Moderate 6-25 bpm (Jaimee Derrell, RN) Accelerations: 15X15 (Jaimee Derrell, RN) Decelerations: Variable (Jaimee Derrell, RN) Datetime: 06/30/2016 23:04 NBP Sys/Montse/Mean (mmHg): 131 (QS system process) : 69 (QS system process) : 92 (QS system process) Pulse: 83 (QS system process) LaborFlag: Antepartum (QS system process) Datetime: 06/30/2016 23:00 Stage of : Antepartum (Miranda Nuno, RN) Monitor Mode: External (Miranda Nuno, RN) Frequency (min): 4-6 (Miranda Nuno, RN) Quality: Mild/Moderate (Miranda Nuno, RN) Duration (sec): 60-80 (Miranda Nuno, RN) Pattern: Normal: <= 5 Contractions in 10 Minutes (Miranda Nuno, RN) Monitor Mode: External US (Miranda Nuno, RN) FHR Baseline Rate : 145 (Miranda Nuno, RN) Variability: Moderate 6-25 bpm (Miranda Nuno, RN) Accelerations: 15X15 (Miranda Nuno, RN) Decelerations: None (Miranda Nuno, RN) Communication: RN Reviewed Strip (Miranda Nuno, RN) Datetime: 06/30/2016 22:45 Stage of : Antepartum (Miranda Nuno, RN) Monitor Mode: External (Miranda Nuno, RN) Frequency (min): 3-3.5 (Miranda Nuno, RN) Quality: Mild/Moderate (Miranda Nuno, RN) Duration (sec): 70-80 (Miranda Nuno, RN) Pattern: Normal: <= 5 Contractions in 10 Minutes (Miranda Nuno, RN) Monitor Mode: External US (Miranda Nuno, RN) FHR Baseline Rate : 140 (Miranda Nuno, RN) Variability: Minimal - Undetectable to <=5 bpm (Miranda Nuno, RN) Accelerations: None (Miranda Nuno, RN) Decelerations: None (Miranda Nuno, RN) Communication: RN Reviewed Strip (Miranda Nuno, RN) Datetime: 06/30/2016 22:34 NBP Sys/Montse/Mean (mmHg): 129 (QS system process) : 71 (QS system process) : 92 (QS system process) Pulse: 80 (QS system process) LaborFlag: Antepartum (QS system process) Datetime: 06/30/2016 22:30 Stage of : Antepartum (Miranda Nuno, RN) Monitor Mode: External; Palpation (Miranda Nuno, RN) Frequency (min): 2-3 (Miranda Nuno, RN) Quality: Mild/Moderate (Miranda Nuno, RN) Duration (sec): 70-80 (Miranda Nuno, RN) Pattern: Normal: <= 5 Contractions in 10 Minutes (Miranda Nuno, RN) Resting Tone (Palpate): Relaxed (Miranda Nuno, RN) Monitor Mode: External US (Miranda Nuno, RN) FHR Baseline Rate : 145 (Miranda Nuno, RN) Variability: Moderate 6-25 bpm (Miranda Nuno RN) Accelerations: 15X15 (Miranda Nuno RN) Decelerations: None (Miranda Nuno RN) Communication: RN at Bedside; RN Reviewed Strip (Miranda Nuno RN) Datetime: 06/30/2016 22:15 Stage of : Antepartum (Miranda Nuno RN) Monitor Mode: External (Miranda Nuno RN) Frequency (min): 1.5-3 (Miranda Nuno RN) Quality: Mild/Moderate (Miranda Nuno RN) Duration (sec): 50-80 (Miranda Nuno RN) Pattern: Normal: <= 5 Contractions in 10 Minutes (Miranda Nuno RN) Resting Tone (Palpate): Relaxed (Miranda Nuno RN) Monitor Mode: External US (Miranda Nuno RN) Monitor Interventions for FHR: Ultrasound Adjusted (Miranda Nuno RN) FHR Baseline Rate : 150 (Miranda Nuno RN) Variability: Moderate 6-25 bpm (Miranda Nuno RN) Accelerations: 10X10 (Miranda Nuno RN) Decelerations: Early (Miranda Nuno RN) Pain Scale: 1 (Miranda Nuno RN) Pain Presence: Intermittent (Miranda Nuno RN) Pain Type: Ache (Miranda Nuno RN) Pain Location: Abdomen; Back (Miranda Nuno RN) Pain Goal: 1 (Miranda Nuno RN) Pain Relief Measures: Comfort Measures (Miranda Nuno RN) Pain Coping: Breathing Through Contractions (Miranda Nuno RN) Comfort Measures: Breathing/Relaxation; Family Support (Miranda Nuno RN) Communication: RN at Bedside; RN Reviewed Strip (Miranda Nnuo RN) LaborFlag: Antepartum (QS system process) Datetime: 06/30/2016 22:13 Monitor Interventions for FHR: Ultrasound Adjusted (Miranda Nuno, RN) Datetime: 06/30/2016 22:04 NBP Sys/Montse/Mean (mmHg): 127 (QS system process) : 69 (QS system process) : 92 (QS system process) Pulse: 89 (QS system process) LaborFlag: Antepartum (QS system process) Datetime: 06/30/2016 22:01 NBP Sys/Montse/Mean (mmHg): 121 (QS system process) : 58 (QS system process) : 81 (QS system process) Pulse: 102 (QS system process) LaborFlag: Antepartum (QS system process) Datetime: 06/30/2016 22:00 Stage of : Antepartum (Miranda Nuno, RN) Monitor Mode: External (Miranda Nuno, RN) Frequency (min): 2-4 (Miranda Nuno, RN) Quality: Mild/Moderate (Miranda Nuno, RN) Duration (sec): 70-90 (Miranda Nuno, RN) Pattern: Normal: <= 5 Contractions in 10 Minutes (Miranda Nuno, RN) Resting Tone (Palpate): Relaxed (Miranda Nuno, RN) Monitor Mode: External US (Miranda Nuno, RN) FHR Baseline Rate : 150 (Miranda Nuno, RN) Variability: Moderate 6-25 bpm (Miranda Nuno, RN) Accelerations: 15X15 (Miranda Nuno, RN) Decelerations: Late (Miranda Nuno, RN) Comments: actions taken for decels strip charted as performed (Miranda Nuno, RN) Communication: RN at Bedside; RN Reviewed Strip (Miranda Nuno, RN) Datetime: 06/30/2016 21:59 Monitor Interventions for UA: [place] Adjusted (Miranda Nuno, RN) Datetime: 06/30/2016 21:56 Monitor Interventions for UA: [place] Adjusted (Miranda Nuno, RN) Datetime: 06/30/2016 21:54 Actions for Decelerations: Side to Side (Miranda Nuno, RN) Patient Position/Activity: Right Lateral; Low Fowlers (Miranda Nuno, RN) Datetime: 06/30/2016 21:53 NBP Sys/Montse/Mean (mmHg): 123 (QS system process) : 55 (QS system process) : 82 (QS system process) Pulse: 94 (QS system process) LaborFlag: Antepartum (QS system process) Datetime: 06/30/2016 21:52 Medication Comments: 5 mg ephedrine IVP (Miranda Nuno, RN) Anesthesia Interventions Other: Ephedrine (Miranda Nuno, RN) Datetime: 06/30/2016 21:49 NBP Sys/Montse/Mean (mmHg): 126 (QS system process) : 72 (QS system process) : 89 (QS system process) Pulse: 81 (QS system process) LaborFlag: Antepartum (QS system process) Datetime: 06/30/2016 21:46 NBP Sys/Montse/Mean (mmHg): 112 (QS system process) : 66 (QS system process) : 84 (QS system process) Pulse: 85 (QS system process) LaborFlag: Antepartum (QS system process) Datetime: 06/30/2016 21:45 Stage of : Antepartum (Miranda Nuno, RN) Monitor Mode: External; Palpation (Miranda Nuno, RN) Frequency (min): 1.5-3 (Miranda Nuno, RN) Quality: Mild/Moderate (Miranda Nuno, RN) Duration (sec): 70-120 (Miranda Nuno, RN) Pattern: Normal: <= 5 Contractions in 10 Minutes (Miranda Nuno, RN) Resting Tone (Palpate): Relaxed (Miranda Nuno, RN) Monitor Mode: External US (Miranda Nuno, RN) FHR Baseline Rate : 140 (Miranda Nuno, RN) Variability: Minimal - Undetectable to <=5 bpm (Miranda Nuno, RN) Accelerations: 10X10 (Miranda Nuno, RN) Decelerations: Late (Miranda Nuno, RN) Comments: Actions for decelerations strip charted as completed (Miranda Nuno, RN) Communication: RN at Bedside; RN Reviewed Strip (Miranda Nuno, RN) Datetime: 06/30/2016 21:43 NBP Sys/Montse/Mean (mmHg): 118 (QS system process) : 57 (QS system process) : 80 (QS system process) Pulse: 93 (QS system process) Medication Comments: 5mg ephedrine given IVP (Miranda Nuno RN) Anesthesia Interventions Other: Ephedrine (Miranda Nuno RN) LaborFlag: Antepartum (QS system process) Datetime: 06/30/2016 21:39 NBP Sys/Montse/Mean (mmHg): 120 (QS system process) : 63 (QS system process) : 83 (QS system process) Pulse: 85 (QS system process) LaborFlag: Antepartum (QS system process) Datetime: 06/30/2016 21:34 NBP Sys/Montse/Mean (mmHg): 118 (QS system process) : 71 (QS system process) : 89 (QS system process) Pulse: 65 (QS system process) LaborFlag: Antepartum (QS system process) Datetime: 06/30/2016 21:30 Stage of : Antepartum (Miranda Nuno, RN) Respirations: 18 (Miranda Nuno, RN) Monitor Mode: External; Palpation (Miranda Nuno, RN) Frequency (min): 2-3.5 (Miranda Nuno, RN) Quality: Mild/Moderate (Miranda Nuno, RN) Duration (sec): 80-100 (Miranda Nuno, RN) Pattern: Normal: <= 5 Contractions in 10 Minutes (Miranda Nuno, RN) Resting Tone (Palpate): Relaxed (Miranda Nuno, RN) Monitor Mode: External US (Miranda Nuno, RN) Variability: Moderate 6-25 bpm (Miranda Nuno, RN) Accelerations: 10X10 (Miranda Nuno, RN) Decelerations: Early; Late (Miranda Nuno RN) Pain Scale: 2 (Miranda Nuno RN) Pain Presence: Intermittent (Miranda Nuno RN) Pain Type: Ache (Miranda Nuno RN) Pain Location: Abdomen (Miranda Nuno RN) Pain Goal: 1 (Miranda Nuno RN) Pain Relief Measures: Comfort Measures (Miranda Nuno RN) Pain Coping: Talking Through Contractions (Miranda Nuno RN) Patient Position/Activity: Right Tilt; Low Fowlers (Miranda Nuno RN) Comfort Measures: Breathing/Relaxation (Miranda Nuno RN) Communication: RN at Bedside; RN Reviewed Strip (Miranda Nuno RN) LaborFlag: Antepartum (QS system process) Datetime: 06/30/2016 21:29 NBP Sys/Montse/Mean (mmHg): 130 (QS system process) : 60 (QS system process) : 80 (QS system process) Pulse: 109 (QS system process) LaborFlag: Antepartum (QS system process) Datetime: 06/30/2016 21:23 NBP Sys/Montse/Mean (mmHg): 123 (QS system process) : 64 (QS system process) : 88 (QS system process) Pulse: 76 (QS system process) LaborFlag: Antepartum (QS system process) Datetime: 06/30/2016 21:15 Stage of : Antepartum (Miranda Nuno, RN) Monitor Mode: External (Miranda Nuno, RN) Frequency (min): 2-3 (Miranda Nuno, RN) Quality: Mild/Moderate (Miranda Nuno, RN) Duration (sec): 70-130 (Miranda Nuno, RN) Pattern: Normal: <= 5 Contractions in 10 Minutes (Miranda Nuno, RN) Resting Tone (Palpate): Relaxed (Miranda Nuno, RN) Monitor Mode: External US (Miranda Nuno, RN) FHR Baseline Rate : 130 (Miranda Nuno, RN) Variability: Moderate 6-25 bpm (Miranda Nuno, RN) Accelerations: 15X15 (Miranda Nuno, RN) Decelerations: None (Miranda Nuno, RN) Communication: RN at Bedside; RN Reviewed Strip (Miranda Nuno, RN) Datetime: 06/30/2016 21:14 I/O Interventions: Clear Liquids Given (Miranda Nuno RN) Patient Care Comments: apple juice, seirra mist, and crackers given for blood sugar. (Miranda Nuno, RN) Datetime: 06/30/2016 21:12 NBP Sys/Montse/Mean (mmHg): 129 (QS system process) : 69 (QS system process) : 91 (QS system process) Pulse: 66 (QS system process) LaborFlag: Antepartum (QS system process) Datetime: 06/30/2016 21:11 NBP Sys/Montse/Mean (mmHg): 129 (QS system process) : 70 (QS system process) : 92 (QS system process) Pulse: 71 (QS system process) Bedside Blood Glucose: 67 (Miranda Nuno, RN) LaborFlag: Antepartum (QS system process) Datetime: 06/30/2016 21:10 NBP Sys/Montse/Mean (mmHg): 121 (QS system process) : 71 (QS system process) : 89 (QS system process) Pulse: 72 (QS system process) Bedside Blood Glucose: 67 L (QS system process) LaborFlag: Antepartum (QS system process) Datetime: 06/30/2016 21:09 NBP Sys/Montse/Mean (mmHg): 127 (QS system process) : 74 (QS system process) : 95 (QS system process) Pulse: 65 (QS system process) LaborFlag: Antepartum (QS system process) Datetime: 06/30/2016 21:08 NBP Sys/Montse/Mean (mmHg): 126 (QS system process) : 69 (QS system process) : 91 (QS system process) Pulse: 71 (QS system process) LaborFlag: Antepartum (QS system process) Datetime: 06/30/2016 21:07 NBP Sys/Montse/Mean (mmHg): 131 (QS system process) : 64 (QS system process) : 91 (QS system process) Pulse: 74 (QS system process) I/O Interventions: Phillip Cath Inserted (Miranda Nuno, RN) LaborFlag: Antepartum (QS system process) Datetime: 06/30/2016 21:06 NBP Sys/Montse/Mean (mmHg): 130 (QS system process) : 65 (QS system process) : 92 (QS system process) Pulse: 61 (QS system process) LaborFlag: Antepartum (QS system process) Datetime: 06/30/2016 21:05 NBP Sys/Montse/Mean (mmHg): 133 (QS system process) : 77 (QS system process) : 97 (QS system process) Pulse: 62 (QS system process) LaborFlag: Antepartum (QS system process) Datetime: 06/30/2016 21:04 NBP Sys/Montse/Mean (mmHg): 129 (QS system process) : 78 (QS system process) : 98 (QS system process) Pulse: 69 (QS system process) Pulse: 83 (QS system process) SpO2 (%): 97 (QS system process) LaborFlag: Antepartum (QS system process) Datetime: 06/30/2016 21:03 NBP Sys/Montse/Mean (mmHg): 122 (QS system process) : 68 (QS system process) : 86 (QS system process) Pulse: 83 (QS system process) LaborFlag: Antepartum (QS system process) Datetime: 06/30/2016 21:02 NBP Sys/Montse/Mean (mmHg): 145 (QS system process) : 68 (QS system process) : 95 (QS system process) Pulse: 87 (QS system process) LaborFlag: Antepartum (QS system process) Datetime: 06/30/2016 21:01 NBP Sys/Montse/Mean (mmHg): 134 (QS system process) : 62 (QS system process) : 94 (QS system process) Pulse: 87 (QS system process) LaborFlag: Antepartum (QS system process) Datetime: 06/30/2016 21:00 Stage of : Antepartum (Miranda Nuno, RN) NBP Sys/Montse/Mean (mmHg): 136 (QS system process) : 78 (QS system process) : 101 (QS system process) Pulse: 65 (QS system process) Monitor Mode: External (Miranda Nuno, RN) Frequency (min): 2-4.5 (Miranda Nuno, RN) Quality: Mild/Moderate (Miranda Nuno, RN) Duration (sec): 70-110 (Miranda Nuno, RN) Pattern: Normal: <= 5 Contractions in 10 Minutes (Miranda Nuno, RN) Monitor Mode: External US (Miranda Nuno, RN) FHR Baseline Rate : 130 (Miranda Nuno, RN) Variability: Moderate 6-25 bpm (Miranda Nuno, RN) Accelerations: 15X15 (Miranda Nuno, RN) Decelerations: None (Miranda Nuno, RN) Communication: RN at Bedside; RN Reviewed Strip (Miranda Nuno, RN) LaborFlag: Antepartum (QS system process) Datetime: 06/30/2016 20:59 NBP Sys/Montse/Mean (mmHg): 129 (QS system process) : 73 (QS system process) : 95 (QS system process) Pulse: 77 (QS system process) Pulse: 85 (QS system process) SpO2 (%): 96 (QS system process) LaborFlag: Antepartum (QS system process) Datetime: 06/30/2016 20:58 NBP Sys/Montse/Mean (mmHg): 137 (QS system process) : 77 (QS system process) : 102 (QS system process) Pulse: 74 (QS system process) Pulse: 73 (QS system process) SpO2 (%): 94 (QS system process) Epidural Procedure: Cath Placed; Loading Dose (Miranda Nuno RN) LaborFlag: Antepartum (QS system process) Datetime: 06/30/2016 20:57 NBP Sys/Montse/Mean (mmHg): 135 (QS system process) : 74 (QS system process) : 99 (QS system process) Pulse: 69 (QS system process) LaborFlag: Antepartum (QS system process) Datetime: 06/30/2016 20:56 Epidural Procedure: Test Dose (Miranda Nuno, RN) Datetime: 06/30/2016 20:54 Pulse: 79 (QS system process) SpO2 (%): 95 (QS system process) LaborFlag: Antepartum (QS system process) Datetime: 06/30/2016 20:52 Pulse: 71 (QS system process) SpO2 (%): 94 (QS system process) LaborFlag: Antepartum (QS system process) Datetime: 06/30/2016 20:51 Procedure Verify: Accurate Procedure Consent Form (Miranda Nuno, RN) Communication: Provider at Bedside (Miranda Nuno, RN) Communication Comments: Dr [place] at bedside (Miranda Nuno, RN) Datetime: 06/30/2016 20:50 NBP Sys/Montse/Mean (mmHg): 135 (QS system process) : 94 (QS system process) : 110 (QS system process) Pulse: 82 (QS system process) LaborFlag: Antepartum (QS system process) Datetime: 06/30/2016 20:49 Pulse: 80 (QS system process) SpO2 (%): 97 (QS system process) LaborFlag: Antepartum (QS system process) Datetime: 06/30/2016 20:45 Stage of : Antepartum (Miranda Nuno, RN) Monitor Mode: External; Palpation (Miranda Nuno, RN) Frequency (min): 3-4 (Miranda Nuno, RN) Quality: Mild/Moderate (Miranda Nuno, RN) Duration (sec): 80-100 (Miranda Nuno, RN) Pattern: Normal: <= 5 Contractions in 10 Minutes (Miranda Nuno, RN) Resting Tone (Palpate): Relaxed (Miranda Nuno, RN) Monitor Mode: External US (Miranda Nuno, RN) FHR Baseline Rate : 130 (Miranda Nuno, RN) Variability: Moderate 6-25 bpm (Miranda Nuno, RN) Accelerations: 15X15 (Miranda Nuno, RN) Decelerations: None (Miranda Nuno, RN) Communication: RN at Bedside; RN Reviewed Strip (Miranda Nuno, RN) Datetime: 06/30/2016 20:44 Pulse: 89 (QS system process) Pulse: 84 (QS system process) SpO2 (%): 96 (QS system process) SpO2 (%): 89 (QS system process) LaborFlag: Antepartum (QS system process) Datetime: 06/30/2016 20:30 Pain Scale: 5 (Miranda Nuno RN) Pain Presence: Intermittent (Miranda Nuno RN) Pain Type: Contraction (Miranda Nuno RN) Pain Location: Abdomen; Back (Miranda Nuno RN) Pain Goal: 1 (Miranda Nuno RN) Pain Relief Measures: Comfort Measures (Miranda Nuno RN) Pain Coping: Requesting Pain Medication or Epidural; Crying; Writhing (Miranda Nuno RN) Comfort Measures: Breathing/Relaxation; Family Support (Miranda Nuno RN) Procedure Type: EPIDURAL (Miranda Nuno RN) Procedure Verify: Correct Patient Identity; Correct Side and Site are Marked; Agreement on Procedure to be Done; Correct Patient Position; Relevant Images and Results are Properly Labeled and Displayed; Addressed Need to Administer Antibiotics or Fluids for Irrigation; Safety Precautions Based on Patient History or Medication Use (Miranda Nuno RN) LaborFlag: Antepartum (QS system process) Datetime: 06/30/2016 20:25 Communication: Provider Orders Received (Miranda Nuno, RN) Communication Comments: Dr Souza informed of cervical exam and pain. [place]des received to get epidural PRN (Miranda Nuno, RN) Datetime: 06/30/2016 20:23 Dilatation (cm): 1.5 (Miranda Nuno, RN) Effacement (%): 90 (Miranda Nuno, RN) Station: 0 (Miranda Nuno, RN) Exam by: B Nuno, RN (Miranda Nuno, RN) Vaginal Bleeding: None (Miranda Nuno, RN) Cervix, Consistency: Soft (Miranda Nuno, RN) Cervix, Position: Midposition (Miranda Nuno, RN) Datetime: 06/30/2016 20:15 Stage of : Antepartum (Miranda Nuno, RN) Respirations: 18 (Miranda Nuno, RN) Temperature (F): 98.4 (Miranda Nuno, RN) Temperature (C): 36.9 (QS system process) Monitor Mode: External (Miranda Nuno RN) Frequency (min): 2-4 (Miranda Nuno RN) Quality: Mild/Moderate (Miranda Nuno RN) Duration (sec): 60-130 (Miranda Nuno RN) Pattern: Normal: <= 5 Contractions in 10 Minutes (Miranda Nuno RN) Resting Tone (Palpate): Relaxed (Miranda Nuno RN) Monitor Mode: External US (Miranda Nuno RN) FHR Baseline Rate : 130 (Miranda Nuno RN) Variability: Moderate 6-25 bpm (Miranda Nuno RN) Accelerations: 15X15 (Miranda Nuno RN) Decelerations: None (Miranda Nuno RN) Pain Scale: 5 (Miranda Nuno RN) Pain Presence: Intermittent (Miranda Nuno RN) Pain Type: Contraction (Miranda Nuno RN) Pain Location: Abdomen; Back (Miranda Nuno RN) Pain Goal: 1 (Miranda Nuno RN) Pain Relief Measures: Comfort Measures (Miranda Nuno RN) Pain Coping: Requesting Pain Medication or Epidural; Crying (Miranda Nuno RN) Comfort Measures: Breathing/Relaxation; Family Support (Miranda Nuno RN) Procedure Type: EPIDURAL (Miranda Nuno RN) Procedure Verify: Correct Patient Identity; Correct Side and Site are Marked; Agreement on Procedure to be Done; Relevant Images and Results are Properly Labeled and Displayed; Addressed Need to Administer Antibiotics or Fluids for Irrigation; Safety Precautions Based on Patient History or Medication Use (Miranda Nuno RN) Communication: RN at Bedside; RN Reviewed Strip (Miranda Nuno RN) LaborFlag: Antepartum (QS system process) Datetime: 06/30/2016 20:05 Antiemetics/Antacids: Phenergan PO (mg) @ 25 (Miranda Nuno, RN) Datetime: 06/30/2016 20:01 Antiemetics/Antacids: Zofran ODT (mg) @ 4 (Miranda Nuno, RN) Datetime: 06/30/2016 20:00 Level of Consciousness: Fully Conscious (Miranda Nuno, RN) DTR's/Clonus: DTRs 2+; No Clonus (Miranda Nuno, RN) Headache: Denies (Miranda Nuno, RN) Breath Sounds, Left: Clear and Equal (Miranda Nuno, RN) Breath Sounds, Right: Clear and Equal (Miranda Nuno, RN) Nausea/Vomiting: Present (Annotations: Nausea) (Miranda Nuno, RN) RUQ Epigastric Pain: Denies (Miranda Nuno, RN)
[2016-07-01] MEDS ORDERED: MISOPROSTOL 0.2 MG TABLET ONE (08:35)
[2016-07-01] MEDS ORDERED: OXYTOCIN/NORMAL SALINE 20 UNIT/1,000 ML RTUINJ ONE (08:35)
[2016-07-01] MEDS ORDERED: ACETAMINOPHEN WITH CODEINE #3 TABLET PO PRN ×2 (10:09)
[2016-07-01] MEDS ORDERED: DIBUCAINE 1% OINTMENT 28 GM TP PRN (10:09)
[2016-07-01] MEDS ORDERED: MEASLES,MUMPS&RUBELLA VACC/PF 0.5 ML VIAL SUBCUT PRN (10:09)
[2016-07-01] MEDS ORDERED: BENZOCAINE/MENTHOL AEROSOL SPRAY 56 ML TOP PRN (10:09)
[2016-07-01] MEDS ORDERED: DIPH/PERTUSS(ACELL)/TETANUS VAC/PF 0.5 ML SYR (>=10YO) IM PRN (10:09)
[2016-07-01] MEDS ORDERED: OXYTOCIN/NORMAL SALINE 1,000 ML IV PRN (10:09)
--- NOTE | 2016-07-01 10:58 | Admission Physical ---
Datetime Report Generated by CPN: 07/01/2016 10:57 CURRENT ADMISSION Chief Complaint: Scheduled Induction of Labor Indication for Induction: Post Dates; Maternal Diabetes Admit Plan: Admit to Unit; Initiate Labor Induction Protocol ALLERGIES Medication Allergies: No Medication Allergies: No Known Allergies (06/01/2016) Medication Allergies: No Known Allergies (05/13/2016) Latex: No Latex Allergies Food Allergies: None Environmental Allergies: None OBSTETRICAL HISTORY EDC: 06/25/2016 00:00 : 1 Para: 0 Para: 0 Term: 0 : 0 SAB: 0 IAB: 0 Ectopic: 0 Livin Cesareans: 0 VBACs: 0 Multiple Births: 0 Gestational Diabetes: Yes Rh Sensitization: No Incompetent Cervix: No YOLA: No Infertility: No ART Treatment: No Uterine Anomaly: No IUGR: No Hx Previous C/S: No Macrosomia: No Hx Loss/Stillborn: No PIH: No Hx : No Placenta Previa/Abruption: No Depression/PP Depression: No PTL/PROM: No Post Hemorrhage: No Current Procedures: Ultrasound Obstetrical History Comments: G1: current , diet-controlled GDM SEE RECORDS Alcohol: No Marijuana : No Cocaine: No Other Illicit Drugs: No Cigarettes: Former Smoker. [id number] MEDICAL HISTORY Diabetes: Yes Diabetes Type: Gestational Diabetes Blood Transfusion: No Pulmonary Disease (Asthma, TB): No Breast Disease: No Hypertension: No Aircraft Servicer Surgery: No Heart Disease: No Hosp/Surgery: Yes Autoimmune Disorder: No Anesthetic Complications: No Kidney Disease: Yes Abnormal Pap Smear: No Neuro/Epilepsy: No Psychiatric Disorders: No Other Medical Diseases: No Hepatitis/Liver Disease: No Significant Family History: No Varicosities/Phlebitis: No Trauma/Violence : No Thyroid Dysfunction: No Medical History Comments: Minimal Change Kidney disease diagnosed 2011 (chronic proteinuria)- no medications currently, followed by nephrology. Aspirin prophylactically for pre-e. Left kidney biopsy 2011; recurrent UTIs INFECTIOUS HISTORY Gonorrhea: No Genital Herpes: No Chlamydia: No Tuberculosis: No Syphilis: No Hepatitis: No HIV/AIDS Exposure: No Rash or Viral Illness: No HPV: No Infectious History Comments: Denies PHYSICAL EXAM General: Normal HEENT: Normal Neurologic: Normal Thyroid: Normal Heart: Normal Lungs: Normal Breast: Normal Back: Normal Abdomen: Normal Genitourinary Exam: Normal Extremities: Normal DTRs: Normal Pelvic Type: Adequate Vital Signs: Reviewed VAGINAL EXAM Dilatation: 0 Effacement: 0 Station: -3 MEMBRANES Pooling: Negative Membranes: Intact FETUS A EGA: 40.5 Monitoring: External US FHR- Baseline: 130 Variability: Moderate 6-25bpm Accelerations: 15X15 Decelerations: None Estimated Weight (gm): 4000 Presentation: Vertex PLANS FOR LABOR AND DELIVERY Labor and Delivery: Plan; Other, Specify Pain Management: Epidural Feeding Preference: Breast Benefit of Breast Feed Discussed: Yes Circumcision: Yes INFORMED CONSENT Signature: with User ID: [email or web address]
[2016-07-01] MEDS: IBUPROFEN 800 MG TABLET PO SCH ×2 (14:13→22:26)
[2016-07-01] MEDS: FERROUS SULFATE 325 MG TABLET PO SCH (18:34)
[2016-07-01] MEDS: DOCUSATE SODIUM 100 MG CAPSULE PO SCH (18:35)
--- NOTE | 2016-07-01 19:00 | L&D Flow Sheet ---
LD Flowsheet Datetime Report Generated by CPN: 07/01/2016 19:00 Datetime: 07/01/2016 10:27 Stage of : Recovery (DUSTY Stokes) NBP Sys/Montse/Mean (mmHg): 134 (QS system process) : 65 (QS system process) : 90 (QS system process) Pulse: 96 (QS system process) Respirations: 17 (DUSTY Stokes) Pain Scale: 0 (DUSTY Stokes) Pain Presence: None/Denies (DUSTY Stokes) Datetime: 07/01/2016 10:12 Stage of : Recovery (Natalya Miah, RNC) NBP Sys/Montse/Mean (mmHg): 118 (QS system process) : 56 (QS system process) : 78 (QS system process) Pulse: 91 (QS system process) Respirations: 17 (Natalya Miah, RNC) Pain Scale: 0 (Natalya Miah, RNC) Pain Presence: None/Denies (Natalya Miah, RNC) Datetime: 07/01/2016 09:57 Stage of : Recovery (Natalya Miah, RNC) NBP Sys/Montse/Mean (mmHg): 132 (QS system process) : 73 (QS system process) : 95 (QS system process) Respirations: 17 (Natalya Miah, RNC) Pain Scale: 0 (Natalya Miah, RNC) Pain Presence: None/Denies (Natalya Miah, RNC) Datetime: 07/01/2016 09:41 Stage of : Recovery (Natalya Miah, RNC) NBP Sys/Montse/Mean (mmHg): 129 (QS system process) : 73 (QS system process) : 95 (QS system process) Pulse: 64 (QS system process) Respirations: 16 (Natalya Dooley RNC) Pain Scale: 0 (Natalya Dooley, RNC) Pain Presence: None/Denies (Natalya Dooley, RNC) Datetime: 07/01/2016 09:27 Stage of : Recovery (Natalya Dooley, RNC) NBP Sys/Montse/Mean (mmHg): 124 (QS system process) : 68 (QS system process) : 90 (QS system process) Pulse: 81 (QS system process) Respirations: 17 (Natalya Dooley, RNC) Pain Scale: 0 (Natalya Dooley, RNC) Pain Presence: None/Denies (Natalya Dooley, RNC) Datetime: 07/01/2016 09:15 Stage of : Recovery (Natalya Dooley, RNC) Pain Scale: 0 (Natalya Dooley, RNC) Pain Presence: None/Denies (Natalya Dooley, RNC) Datetime: 07/01/2016 09:00 Stage of : Recovery (Natalyamarilyn Dooley, [facility]) Respirations: 17 ([facility] Temperature (F): 98.5 ([facility] Temperature (C): 36.9 (QS system process) Temperature Route: Oral (Natalya Dooley, [facility]) Pain Scale: 0 ([facility]) Pain Presence: None/Denies (Natalya Dooley, [facility]) Datetime: 07/01/2016 08:59 Stage of : Recovery [facility] Datetime: 07/01/2016 08:50 Stage of : Recovery (Natalya Miah, RNC) Datetime: 07/01/2016 08:43 Pushing: Coached on Pushing; Urge to Push (Melissa Duenas, RN) Pushing Position: Pushing with Contractions; Pushing Lithotomy (Melissa Duenas, RN) Pushing Progress: Descent with Pushing; Presenting Part Visible (Melissa Duenas, RN) Datetime: 07/01/2016 08:38 Communication Comments: bed broken down for delivery (Melissa Duenas, RN) Datetime: 07/01/2016 08:36 Pushing: Coached on Pushing (Natalya Dooley, RNC) Pushing Progress: Descent with Pushing (Natalya Miah, RNC) Datetime: 07/01/2016 08:30 Monitor Mode: External; Palpation (Natalya Dooley, RNC) Frequency (min): 3-5 (Natalya Dooley, RNC) Quality: Moderate to Strong (Natalya Miah, RNC) Duration (sec): 60-90 (Natalya Miah, RNC) Duration Criteria: Less than Two 120 Second Contractions (Natalya Miah, RNC) Pattern: Normal: <= 5 Contractions in 10 Minutes (Natalya Miah, RNC) Resting Tone (Palpate): Relaxed (Natalya Miah, RNC) Monitor Mode: External US (Natalya Dooley, RNC) FHR Baseline Rate : 140 (Natalya Miah, RNC) Variability: Moderate 6-25 bpm (Natalya Miah, RNC) Accelerations: None (Natalya Miah, RNC) Decelerations: None (Natalya Miah, RNC) Dilatation (cm): 10.0 (Melissa Duenas RN) Effacement (%): 100 (Melissa Duenas RN) Station: 3 (Melissa Duenas RN) Exam by: Zoe Carrero CNM (Melissa Duenas RN) Datetime: 07/01/2016 08:28 Communication: Provider at Bedside (Melissa Henrique, ) Datetime: 07/01/2016 08:23 Membrane Status: Ruptured (Natalya Dooley [facility]) Membranes Rupture Method: Spontaneous (Natalya Dooley [facility]) Amniotic Fluid Color: Clear (Natalya Dooley [facility]) Amniotic Fluid Amount: Moderate (Natalya Dooley [facility]) Datetime: 07/01/2016 08:15 Monitor Mode: External; Palpation (Natalya Dooley [facility]) Frequency (min): 2-2.5 (Natalya Dooley RNC) Quality: Moderate to Strong (Natalya Miah, RNC) Duration (sec): 60-90 (Natalya Miah, RNC) Duration Criteria: Less than Two 120 Second Contractions (Natalya Miah, RNC) Pattern: Normal: <= 5 Contractions in 10 Minutes (Natalya Miah, RNC) Resting Tone (Palpate): Relaxed (Natalya Miah, RNC) Monitor Mode: External US (Natalya Miah, RNC) FHR Baseline Rate : 140 (Natalya Miah, RNC) Variability: Moderate 6-25 bpm (Natalya Miah, RNC) Accelerations: 15X15 (Natalya Miah, RNC) Decelerations: Early (Natalya Miah, RNC) Datetime: 07/01/2016 08:00 Monitor Mode: External; Palpation (Natalya Miah, RNC) Frequency (min): 3-5 (Natalya Miah, RNC) Quality: Mild/Moderate (Natalya Miah, RNC) Duration (sec): 60-190 (Natalya Miah, RNC) Duration Criteria: Less than Two 120 Second Contractions (Natalya Miah, RNC) Pattern: Normal: <= 5 Contractions in 10 Minutes (Natalya Miah, RNC) Resting Tone (Palpate): Relaxed (Natalya Miah, RNC) Monitor Mode: External US (Natalya Miah, RNC) FHR Baseline Rate : 145 (Natalya Miah, RNC) Variability: Moderate 6-25 bpm (Natalya Miah, RNC) Accelerations: 15X15 (Natalya Miah, RNC) Decelerations: None (Natalya Miah, RNC) Datetime: 07/01/2016 07:45 Monitor Mode: External; Palpation (Natalya Miah, RNC) Frequency (min): 3-3.5 (Natalya Miah, RNC) Quality: Mild/Moderate (Natalya Miah, RNC) Duration (sec): 60-90 (Natalya Miah, RNC) Duration Criteria: Less than Two 120 Second Contractions (Natalya Miah, RNC) Pattern: Normal: <= 5 Contractions in 10 Minutes (Natalya Miah, RNC) Resting Tone (Palpate): Relaxed (Natalya Miah, RNC) Monitor Mode: External US (Natalya Miah, RNC) FHR Baseline Rate : 155 (Natlaya Miah, RNC) Variability: Moderate 6-25 bpm (Natalya Miah, RNC) Accelerations: 15X15 (Natalya Miah, RNC) Decelerations: None (Natalya Miah, RNC) Datetime: 07/01/2016 07:36 Patient Position/Activity: Peanut Ball; Right Extreme (Natalya Miah, RNC) Datetime: 07/01/2016 07:30 Monitor Mode: External; Palpation (Natalya Miah, RNC) Frequency (min): 2-2.5 (Natalya Miah, RNC) Quality: Mild/Moderate (Natalya Miah, RNC) Duration (sec): 60-90 (Natalya Miah, RNC) Duration Criteria: Less than Two 120 Second Contractions (Natalya Miah, RNC) Pattern: Normal: <= 5 Contractions in 10 Minutes (Natalya Miah, RNC) Resting Tone (Palpate): Relaxed (Natalya Miah, RNC) Monitor Mode: External US (Natalya Miah, RNC) FHR Baseline Rate : 150 (Natalya Miah, RNC) Variability: Moderate 6-25 bpm (Natalya Miah, RNC) Accelerations: 15X15 (Natalya Miah, RNC) Decelerations: None (Natalya Miah, RNC) Datetime: 07/01/2016 07:15 Monitor Mode: External (Natalya Miah, RNC) Frequency (min): 2-3.5 (Natalya Miah, RNC) Quality: Moderate to Strong (Natalya Miah, RNC) Duration (sec): 60-90 (Natalyamarilyn Dooley, RNC) Duration Criteria: Less than Two 120 Second Contractions (Natalya Dooley, RNC) Pattern: Normal: <= 5 Contractions in 10 Minutes (Natalya Dooley, RNC) Resting Tone (Palpate): Relaxed (Natalya Dooley, RNC) Monitor Mode: External US (Natalya Dooley, RNC) FHR Baseline Rate : 135 (Natalya Dooley, RNC) Variability: Moderate 6-25 bpm (Natalya Miah, RNC) Accelerations: 15X15 (Natalya Miah, RNC) Decelerations: None (Natalya Dooley, RNC) Datetime: 07/01/2016 07:14 NBP Sys/Montse/Mean (mmHg): 143 (QS system process) : 88 (QS system process) : 110 (QS system process) Pulse: 78 (QS system process) Temperature (F): 99.0 (Natalya Dooley RNC) Temperature (C): 37.2 (QS system process) Level of Consciousness: Fully Conscious (Natalya Dooley RNC) DTR's/Clonus: DTRs 2+; No Clonus (Natalya Dooley, RNC) Headache: Denies (Natalya Dooley RNC) Breath Sounds, Left: Clear and Equal (Natalya Dooley RNC) Breath Sounds, Right: Clear and Equal (Natalya Dooley, RNC) Nausea/Vomiting: Denies (Natalya Dooley RNC) RUQ Epigastric Pain: Denies (Natalya Dooley RNC) LaborFlag: Labor (QS system process) Datetime: 07/01/2016 07:10 Communication: Report Given to @ K. Miah, RN (Miranda Nuno, RN) Communication Comments: Care relinquished at this time. (Miranda Nuno, RN) Datetime: 07/01/2016 07:09 NBP Sys/Montse/Mean (mmHg): 139 (QS system process) : 91 (QS system process) : 110 (QS system process) Pulse: 71 (QS system process) LaborFlag: Labor (QS system process) Datetime: 07/01/2016 07:00 Stage of : Labor (Miranda Nuno RN) Respirations: 18 (Miranda Nuno RN) Monitor Mode: External (Miranda Nuno RN) Frequency (min): 2-2.5 (Miranda Nuno RN) Quality: Moderate (Miranda Nuno RN) Duration (sec): 50-80 (Miranda Nuno RN) Pattern: Normal: <= 5 Contractions in 10 Minutes (Miranda Nuno RN) Resting Tone (Palpate): Relaxed (Miranda Nuno RN) Monitor Mode: External US (Miranda Nuno RN) FHR Baseline Rate : 140 (Miranda Nuno RN) Variability: Minimal - Undetectable to <=5 bpm (Miranda Nuno RN) Accelerations: 10X10 (Miranda Nuno RN) Decelerations: Early (Miranda Nuno RN) Pain Scale: 3 (Miranda Nuno RN) Pain Presence: Intermittent (Miranda Nuno RN) Pain Type: Pressure (Miranda Nuno RN) Pain Location: Perineum (Miranda Nuno RN) Pain Goal: 1 (Miranda Nuno RN) Pain Relief Measures: Comfort Measures (Miranda Nuno RN) Pain Coping: Talking Through Contractions (Miranda Nuno RN) Comfort Measures: Breathing/Relaxation; Family Support (Miranda Nuno RN) Communication: RN at Bedside; RN Reviewed Strip (Miranda Nuno RN) LaborFlag: Labor (QS system process)
--- NOTE | 2016-07-02 06:01 | L&D General Admission ---
General Admit Datetime Report Generated by CPN: 07/02/2016 06:00 INFORMATION Patient Age: 20 (03/28/2016 12:47:QS system process) EDC: 06/25/2016 00:00 (05/13/2016 21:09:Zenia Russell RN) : 1 (05/13/2016 21:09:Patt Donald RN) Para: 0 (05/13/2016 22:21:Patt Donald RN) Term: 0 (05/13/2016 21:09:Patt Donald RN) : 0 (05/13/2016 21:09:Patt Donald RN) Spontaneous Abortions: 0 (05/13/2016 21:09:Patt Donald RN) Induced Abortions: 0 (05/13/2016 21:09:Patt Donald RN) Livin (05/13/2016 21:09:Patt Donald RN) Cesareans: 0 (05/13/2016 21:09:Patt Donald RN) VBACs: 0 (05/13/2016 21:09:Patt Donald RN) Ectopic: 0 (05/13/2016 21:09:Patt Donald RN) Multiple Births: 0 (05/13/2016 21:09:Patt Donald RN) Baby, Number in Womb: 1 (06/01/2016 13:08:Edda Andres RN) 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: [employer] (05/13/2016 21:09:Patt Donald RN) Month of 1st Visit: October 2015 (05/13/2016 21:09:Patt Donald RN) Adequate Care: Yes (05/13/2016 21:09:Patt Donald RN) Height (in): 68 (07/01/2016 10:56:QS system process) ALLERGIES Medication Allergy: No (05/13/2016 21:09:Patt Donald RN) Medication Allergies: No Known Allergies (06/01/2016) (06/01/2016 12:47:QS system process) Latex Allergy: No Latex Allergies (05/13/2016 21:09:Patt Donald RN) Food Allergies: None (05/13/2016 21:09:Patt Ring, RN) Environmental Allergies: None (05/13/2016 21:09:Patt Ring, RN) COMMUNICATION Primary Language: Arabic (05/13/2016 21:09:Patt Donald RN) Medical Tx Preferred Language: Arabic (05/13/2016 21:09:Patt Donald RN) Communication Barrier(s): None (05/13/2016 21:09:Patt Ring, RN) DEMOGRAPHICS Address: [address] [place] [address] [place] [address] (03/28/2016 12:47:QS system process) Zipcode: [address] (03/28/2016 12:47:QS system process) Home (03/28/2016 12:47:QS system process) SSN: [id number] (03/28/2016 12:47:QS system process) Next of Kin Name: LIZBETH LOPEZ (03/28/2016 12:47:QS system process) Next of Kin (03/28/2016 12:47:QS system process) Next of Kin Relationship: SPO (03/28/2016 12:47:QS system process) Date of : 1995 (03/28/2016 12:47:QS system process) Marital Status: (03/28/2016 12:47:QS system process) Sex: Female (03/28/2016 12:47:QS system process) Race: (03/28/2016 12:47:QS system process) Ethnicity: Non- or (03/28/2016 12:47:QS system process) Judaism: None (03/28/2016 12:47:QS system process) DRUG AND ALCOHOL USE Alcohol: No (05/13/2016 21:09:Patt Donald RN) Cigarettes: Former Smoker. [id number] (05/13/2016 21:09:Patt Ring, RN) Marijuana: No (05/13/2016 21:09:Patt Ring, RN) Cocaine: No (05/13/2016 21:09:Patt Donadl RN) Other Illicit Drugs: No (05/13/2016 21:09:Patt Ring RN) VACCINE HISTORY Influenza Vaccine: Yes (05/13/2016 21:09:Patt Donald RN) Influenza Date: 2016 (05/13/2016 21:09:Patt Donald RN) Pneumococcal Vaccine: No (05/13/2016 21:09:Patt Donald RN) Tetanus Vaccine: Yes (05/13/2016 21:09:Patt Donald RN) Tdap Vaccine: Uncertain (05/13/2016 21:09:Patt Donald RN) Hepatitis B Vaccine: Yes (05/13/2016 21:09:Patt Donald RN) Follow Up Clerk: Billy (05/13/2016 21:09:Patt Donald RN) Feeding Preference: Breast (05/13/2016 21:09:Patt Donald RN) Benefit of Breast Feed Discussed: Yes (05/13/2016 21:09:Patt Donald RN) Circumcision: Yes (05/13/2016 21:09:Patt Donadl RN) Classes Attended: No (05/13/2016 21:09:Miranda Nuno RN) Tubal Ligation: No (05/13/2016 21:09:Patt Donald RN) Tubal Authorization Signed: N/A (05/13/2016 21:09:Patt Donald RN) Consent: N/A (05/13/2016 21:09:Patt Donald RN) Consent Signed: N/A (05/13/2016 21:09:Patt Donald RN) Pain Management Plans: Epidural (05/13/2016 21:09:Miranda Nuno RN) Plans for Labor and Delivery: Plan; Other, Specify (05/13/2016 21:09:Patt Donald RN) Other Labor and Delivery Plans: *See plan (05/13/2016 21:09:Patt Donald RN) Support Person: Lizbeth Carolin (05/13/2016 21:09:Patt Donald RN) Support Person Relationship: (05/13/2016 21:09:Patt Donald RN) Cultural/Spritual Practice: No (05/13/2016 21:09:Patt Donald RN) Spir/Cult Dietary Needs: No (05/13/2016 21:09:Patt Donald RN) LIVING SITUATION/DISCHARGE PLAN Living Arrangements: House (05/13/2016 21:09:Patt Donald RN) Adequate Access to:: Electric; Heat; Refrigeration; Plumbing/Running water; Phone; Transportation (05/13/2016 21:09:Patt Donald RN) WIC Program: Yes (05/13/2016 21:09:Patt Donald RN) Discharge Turntable Operator Person: Lizbeth (05/13/2016 21:09:Patt Donald RN) Person to Help after Discharge: Lizbeth (05/13/2016 21:09:Patt Donald RN) Currently Using Commun Resources: No (05/13/2016 21:09:Patt Donald RN) Outside Agency/Certified Coding Specialist: N/A (05/13/2016 21:09:Patt Donald RN) Car Seat for Discharge: Yes (05/13/2016 21:09:Patt Donald RN) Adoption Requested: No (05/13/2016 21:09:Patt Donald RN) Pt Contact w/ Post : N/A (05/13/2016 21:09:Patt Ring, RN) LABS Blood Type: O Positive (05/13/2016 21:09:Patt Donald RN) Antibody Screen: Negative (05/13/2016 21:09:Patt Donald RN) Rho(G) this : Not Applicable (05/13/2016 21:09:Patt Donald RN) Hemoglobin: 11.7 L (06/29/2016 19:57:QS system process) Hematocrit: 35.0 L (06/29/2016 19:57:QS system process) MCV: 90 (06/29/2016 19:57:QS system process) Group Beta Strep: negative (05/13/2016 21:09:Milla Rasmussen RN) Gonorrhea: Negative (05/13/2016 21:09:Milla Rasmussen RN) Chlamydia: Negative (05/13/2016 21:09:Milla Rasmussen RN) RPR/VDRL: Nonreactive (05/13/2016 21:09:Patt Donald RN) Hepatitis B: Negative (05/13/2016 21:09:Patt Donald RN) Rubella: Immune (05/13/2016 21:09:Patt RingFREDDY) OB/PREVIOUS HISTORY Current Procedures: Ultrasound (05/13/2016 21:09:Patt Donald RN) History of Previous : No (05/13/2016 21:09:Patt Donald RN) History of Gestational Diabetes: Yes (05/13/2016 21:09:Patt Donald RN) History of PIH: No (05/13/2016 21:09:Milla Rasmussen RN) History of Incompetent Cervix: No (05/13/2016 21:09:Patt Donald RN) History of Placenta Previa/Abrup: No (05/13/2016 21:09:Milla Rasmussen RN) History of Macrosomia: No (05/13/2016 21:09:Milla Rasmussen RN) History of IUGR: No (05/13/2016 21:09:Milla Rasmussen RN) History of Hemorrhage: No (05/13/2016 21:09:Patt Donald RN) History of Loss/Stillborn: No (05/13/2016 21:09:Patt Donald RN) History of : No (05/13/2016 21:09:Patt Donald RN) History of D (Rh) Sensitization: No (05/13/2016 21:09:Patt Donald RN) History Recurrent Loss/Stillborn: No (05/13/2016 21:09:Patt Donald RN) History Depression/PP Depression: No (05/13/2016 21:09:Patt Donald RN) History of Uterine Anomaly/YOLA: No (05/13/2016 21:09:Patt Donald RN) History of Infertility: No (05/13/2016 21:09:Patt Donald RN) History of ART Treatment: No (05/13/2016 21:09:Patt Donald RN) History of YOLA: No (05/13/2016 21:09:Patt Donald RN) Comments Obstetrical History: G1: current , diet-controlled GDM (05/13/2016 21:09:Patt Donald RN) MEDICAL HISTORY Med Hx Diabetes: Yes (05/13/2016 21:09:Patt Donald RN) Diabetes Type: Gestational Diabetes (05/13/2016 21:09:Patt Donald RN) Med Hx Hypertension: No (05/13/2016 21:09:Patt Donald RN) Med Hx Heart Disease: No (05/13/2016 21:09:Patt Donald RN) Med Hx Autoimmune Disorder: No (05/13/2016 21:09:Patt Donald RN) Med Hx Kidney Disease/UTI: Yes (05/13/2016 21:09:Patt Donald RN) Med Hx Neurologic/Epilepsy: No (05/13/2016 21:09:aPtt Donald RN) Med Hx Psychiatric Disorders: No (05/13/2016 21:09:Patt Donald RN) Med Hx Hepatitis/Liver Disease: No (05/13/2016 21:09:Patt Donald RN) Med Hx Varicosities/Phlebitis: No (05/13/2016 21:09:Patt Donald RN) Med Hx Thyroid Dysfunction: No (05/13/2016 21:09:Patt Donald RN) Med Hx Trauma/Violence: No (05/13/2016 21:09:Patt Donald RN) Med Hx Blood Transfusion: No (05/13/2016 21:09:Patt Donald RN) Med Hx Pulmonary (Asthma,TB): No (05/13/2016 21:09:Patt Donald RN) Med Hx Breast: No (05/13/2016 21:09:Patt Donald RN) Med Hx DESTATICIZER FEEDER Surgery: No (05/13/2016 21:09:Patt Donald RN) Med Hx Hospitalization/Surgery: Yes (05/13/2016 21:09:Patt Donald RN) Med Hx Anesthetic Complications: No (05/13/2016:09:Patt Donald RN) Med Hx Abnormal Pap Smear: No (05/13/2016 21:09:Patt Dnoald RN) Other Medical Diseases: No (05/13/2016 21:09:Patt Donald RN) Med Hx Significant Family Hx: No (05/13/2016 21:09:Patt Donald RN) Details of Med/Surg Hx: Minimal Change Kidney disease diagnosed 2011 (chronic proteinuria)- no medications currently, followed by nephrology. Aspirin prophylactically for pre-e. Left kidney biopsy 2011; recurrent UTIs (05/13/2016 21:09:Patt Donald RN) INFECTIOUS HISTORY Inf Hx Gonorrhea: No (05/13/2016 21:09:Patt Donald RN) Inf Hx Chlamydia: No (05/13/2016 21:09:Patt Donald RN) Inf Hx Syphilis: No (05/13/2016 21:09:Patt Donald RN) Inf Hx HIV/AIDS: No (05/13/2016 21:09:Patt Donald RN) Inf Hx Human Papilloma Virus: No (05/13/2016 21:09:Patt Donald RN) Inf Hx Pt/Partner Genital Herpes: No (05/13/2016 21:09:Patt Donald RN) Inf Hx Tuberculosis/Exposure: No (05/13/2016 21:09:Patt Donald RN) Inf Hx Hepatitis B,C: No (05/13/2016 21:09:Patt Donald RN) Inf Hx Rash or Viral Illness: No (05/13/2016 21:09:Patt Donald RN) Details of Infectious Hx: Denies (05/13/2016 21:09:Patt Donald RN) GENETIC HISTORY Gen Hx Age >=35 at JOHN: No (05/13/2016 21:09:Patt Donald RN) Gen Hx Thalassemia: No (05/13/2016 21:09:Patt Donald RN) Gen Hx Congenital Heart Defect: No (05/13/2016 21:09:Patt Donald RN) Gen Hx Neural Tube Defect: No (05/13/2016 21:09:Patt Donald RN) Gen Hx Down's Syndrome: No (05/13/2016 21:09:Patt Donald RN) Gen Hx Ga-Sachs: No (05/13/2016 21:09:Patt Donald RN) Gen Hx Alonzo: No (05/13/2016 21:09:Patt Donald RN) Gen Hx Familial Dysautonomia: No (05/13/2016 21:09:Patt Donald RN) Gen Hx Sickle Cell Disease/Trait: No (05/13/2016 21:09:Patt Donald RN) Gen Hx Hemophilia/Blood Disorder: No (05/13/2016 21:09:Patt Donald RN) Gen Hx Muscular Dystrophy: No (05/13/2016 21:09:Patt Donald RN) Gen Hx Cystic Fibrosis: No (05/13/2016 21:09:Patt Donald RN) Gen Hx Huntingtons Chorea: No (05/13/2016 21:09:Patt Donald RN) Gen Hx Mental Retardation/Autism: No (05/13/2016 21:09:Patt Donald RN) Gen Hx Tested for Fragile X: No (05/13/2016 21:09:Patt Donald RN) Gen Hx Other Inher/Chromosomal: No (05/13/2016 21:09:Patt Donald RN) Gen Hx Maternal Metabolic DO: No (05/13/2016 21:09:Patt Donald RN) Gen Hx Pt Father or FOB Defect: No (05/13/2016 21:09:Patt Donald RN) Gen Hx Other Genetic History: No (05/13/2016 21:09:Patt Donald RN) Gen Hx Drugs/Meds since LMP: Yes (05/13/2016 21:09:Patt Donald RN) Gen Hx Medications: PNV, aspirin (05/13/2016 21:09:Patt Donald RN)
--- NOTE | 2016-07-02 06:01 | L&D Current Admission ---
Current Admit Datetime Report Generated by CPN: 07/02/2016 06:00 ADMISSION INFORMATION Current Admit Date/Time: 06/29/2016 19:56 (05/13/2016 21:34:Lelia Pepe RN) Reason for Admission: Induction of Labor (05/13/2016 21:34:Lelia Pepe RN) Chief Complaint: Scheduled Induction of Labor (06/29/2016 19:57:Lelia Pepe RN) Medications During : Vitamin (05/13/2016 21:34:Lelia Pepe RN) EGA per Dates: 40.4 (05/13/2016 21:34:QS system process) Method of Arrival: Wheelchair (05/13/2016 21:34:Lelia Pepe RN) Admitted From: Emergency Dept (05/13/2016 21:34:Lelia Pepe RN) Reason for Induction: Postterm; Gestational Hypertension (05/13/2016 21:34:Lelia Pepe RN) Records Available: Yes (05/13/2016 21:34:TRAY [place] [facility] Admission Information: Reviewed (05/13/2016 21:34:Lelia Pepe RN) BELONGINGS/ADVANCED DIRECTIVES Valuables/Personal Effects: Purse/Wallet; Cell Phone; Jewelry (05/13/2016 21:34:Lelia Pepe RN) Disposition of Belongings: Kept with Patient (05/13/2016 21:34:Lelia Pepe RN) Advance Direct for Healthcare: No, and Wants No Information (05/13/2016 21:34:Lelia Pepe RN) Durable Power of Automat Watcher: No (05/13/2016 21:34:Lelia Pepe RN) Living Will: No (05/13/2016 21:34:Lelia Pepe RN) Organ Donor: Yes (05/13/2016 21:34:Lelia Pepe RN) Pt Rights Information Given: Yes (05/13/2016 21:34:Lelia Pepe RN) Pt Understands Pt Rights: Yes (05/13/2016 21:34:Lelia Pepe RN) LEARNING ASSESSMENT Knowledge Level: Had Pre-Hospital Education (05/13/2016 21:34:Lelia Pepe RN) Barriers to Learning: None (05/13/2016 21:34:Lelia Pepe RN) Learning Readiness: Motivated (05/13/2016 21:34:Lelia Pepe RN) Learns Best By: 1 to 1 Instruction (05/13/2016 21:34:Lelia Pepe RN) Learning Needs: Labor and Delivery Process; Pain Management; Symptoms to Report; Treatment Plan; Medication; Diagnosis; Nutrition; Equipment; Infant Care; Community Resources (05/13/2016 21:34:Lelia Pepe RN) DOMESTIC VIOLANCE SCREENING Dom Viol Threatened/Hurt: No (05/13/2016 21:34:Lelia Pepe RN) Hx of Abuse/Neglect past 2yrs: No (05/13/2016 21:34:Lelia ePpe RN) Feel Unsafe Going Home: No (05/13/2016 21:34:Lelia Pepe RN) Addt'l Observ Indicating Abuse: No (05/13/2016 21:34:Lelia Pepe RN) Reason Unable to Complete Screen: N/A, Screen Completed (05/13/2016 21:34:Lelia Pepe RN) Considered Personal Harm/Suicide: No (05/13/2016 21:34:Lelia Pepe RN) NUTRITIONAL/FUNCTIONAL SCREENING Problem with Appetite >5 Days: No (05/13/2016 21:34:Lelia Pepe RN) Chew/Swallow Difficulties: No (05/13/2016 21:34:Lelia Pepe RN) Inappropriate Wt Gain/Loss: No (05/13/2016 21:34:Lelia Pepe RN) Presence Skin Breakdown/Ulcer: No (05/13/2016 21:34:Lelia Peep RN) Special Diet: No (05/13/2016 21:34:Lelia Pepe RN) Pt Requests Group Therapy Counselor Visit: No (05/13/2016 21:34:Lelia Pepe RN) Hx of Any of the Following?: N/A (05/13/2016 21:34:Lelia Pepe RN) New Diagnosis of: N/A (05/13/2016 21:34:Lelia Pepe RN) Requires Assist w/Ambulation: No (05/13/2016 21:34:Lelia Pepe RN) Uses Assist Device to Ambulate: No (05/13/2016 21:34:Lelia Pepe RN) Pt Requires Help w/ADL's: No (05/13/2016 21:34:Lelia Pepe RN)
[2016-07-02] MEDS: IBUPROFEN 800 MG TABLET PO SCH ×3 (06:06→22:07)
--- NOTE | 2016-07-02 06:15 | L&D Care Plan ---
LD CARE PLANS Datetime Report Generated by CPN: 07/02/2016 06:15 Datetime: 06/29/2016 18:30 Pain State: Risk For (Edda Andres RN) Related To: Labor and Delivery Process; Disease Process; Treatment and Procedures; Post (Edda Andres RN) Goal(s): Patients Pain will be Assessed and Managed; Patient will Verbalize Adequate Relief of Pain or the Ability to [place] with Current Pain (dEda Andres RN) Interventions: Assess Pain Severity on Scale of 0 (None) to 5 (Severe); Assess Type, Location and Intensity of Pain Each Time Client Reports Discomfort and Notify Provider if Unusal Pain Develops; Encourage Proper Breathing and Relaxation Techniques; Offer Alternatives Such as Repositioning, Calm Environment, Massages, Diversional Activities, Ice Pack, Splinting, and Ambulation; Administer Analgesics as Ordered; Assist with Epidural Placement as Appropriate; Evaluate Therapeutic Effectiveness of Medication and Treatments (Edda Andres RN) Outcome: Patient will Report Absence or Relief of Pain Consistent with Established Pain Goal (Edda Andres RN) Status: Ongoing (Edda Andres RN) Outcome: Patient will have a Decrease in Signs and Symptoms of Discomfort (Edda Andres RN) Status: Ongoing (Edad Andres RN) Outcome: Pain will be Controlled During Procedures (Edda Andres RN) Status: Ongoing (Edda Andres RN) Anxiety State: Risk For (Edda Andres RN) Related To: Labor and Delivery Process; Medical Interventions; Significant Life Event (Edda Andres RN) Goal(s): Patient will have Decreased Anxiety and be able to Function at Acceptable Levels (Edda Andres RN) Interventions: Assess Verbal and Nonverbal Behavioral Indicators of Anxiety; Assist Patient to Identify and Verbalize Symptoms of Anxiety; Identify and Demonstrate Techniques to Control Anxiety; Assist Patient with Coping Mechanisms to Manage Anxiety; Provide Theraputic Touch for the Patient; Explain to Patient, Using a Calm Reassuring Approach and Nonmedical Terms, All Activities, Procedures, and Concerns; Instruct Patient and Family about Post Discharge Care, Limitations, Symptoms to Report and Resources Available (Edda Andres RN) Outcome: Patient will Identify, Verbalize and Demonstrate Techniques to Control Anxiety (Edda Andres RN) Status: Ongoing (Edda Andres RN) Outcome: Patient's Posture, Facial Expressions, Gestures and Activity Level will Reflect Decreased Anxiety (Edda Andres RN) Status: Ongoing (Edda Andres RN) Outcome: Patient will Verbalize a Sense of Control and/or Acceptance of the Situation (Edda Andres RN) Status: Ongoing (Edda Andres RN) Outcome: Patient will Identify and Utilize Support Person (Edda Andres RN) Status: Ongoing (Edda Andres RN) Knowledge Deficit State: Risk For (Edda Andres RN) Related To: Labor and Delivery Process; Treatment and Procedures (Edda Andres RN) Goal(s): Patient will Accurately Verbalize Understanding of Plan of Care and Treatment; Patient and Family will Accurately Verbalize Understanding of the Disease Process (Edda Andres RN) Interventions: Assess Motivation and Willingness of Patient/Family to Learn; Assess Preferred Learning Mode: One to One Instruction, Reading, Videos, Group Discussion or Demonstration; Assess Barriers to Learning: Pain, Emotional State, Language Barrier, Cognitive Impairment, Visual or Hearing Deficits; Assess Patient and Family Knowledge of Disease Process, Medications and Treatment; Discuss Therapy and/or Treatment Options, Describe Rationale Behind Management, Therapy and Treatment Recommendations; Instruct Patient and Family on Signs and Symptoms to Report; Instruct Patient and Family on Medication Effects and Side Effects; Provide Appropriate and Timely Education Using Multiple Techniques; Provide Patient and Family with Support Group Information and Resources; Give Clear and Thorough Explanations and Demonstrations (Edda Andres RN) Outcome: Patient and Family will Verbalize Understanding of Condition, Treatment and Signs and Symptoms to Report (Edda Andres RN) Status: Ongoing (Edda Andres RN) Outcome: Patient will Identify Perceived Learning Needs and Express Motivation to Learn (Edda Andres RN) Status: Ongoing (Edda Andres RN) Outcome: Patient will Verbalize Understanding of Desired Content, and/or Performs Desired Skill Prior to Discharge (Edda Andres RN) Status: Ongoing (Edda Andres RN) Infection State: Risk For (Edda Andres RN) Related To: Surgical Procedures; Prolonged Labor or Induction; Invasive Procedures (Edda Andres RN) Goal(s): The Patient will be Free of Infection, Vital Signs Stable and Lab Work within Normal Parameters (Edda Andres, RN) Interventions: Instruct and Reinforce Proper Handwashing, Hygiene, and Care Techniques to Patient and Family; Monitor Vital Signs; Monitor Patient for the Following Signs of Infection: Fever, Abdominal Tenderness, Unusual Discharge; Monitor Aminiotic Fluid, Urine and Lochia for Color and Odor; Observe Wounds, Incisions and Invasive Line Sites for Redness, Drainage and Edema; Assess IV Sites per Hospital Policy; Monitor Lab and Test Results and Notify Provider of Abnormal Findings; Assess Nutritional Status and Promote Good Nutrition (Edda Andres RN) Outcome: Patient will Remain Free of Infection (Edda Andres RN) Status: Ongoing (Edda Andres RN) Outcome: Infection will be Recognized Early to Allow for Prompt Treatment (Edda Andres RN) Status: Ongoing (Edda Andres RN) Outcome: Patient will have Vital Signs Within Expected Range (Edda Andres, RN) Status: Ongoing (Edda Andres RN) Fluid Volume State: Risk For (Edda Andres RN) Related To: Prolonged Labor or Induction (Edda Andres RN) Goal(s): Patient will Achieve and Maintain a Balanced Fluid Volume Status; Hemodynamically Stable (Edda Andres RN) Interventions: Monitor Vital Signs; Auscultate Breath Sounds; Monitor Patient for Skin Turgor, Mucous Membranes, Dry Skin, Weakness, Headaches and Confusion; Provide Oral Fluids as Ordered; Initiate and Maintain Intravenous Fluids as Ordered; Monitor Intake and Output as Indicated Per Patient Status; Accurately Measure Blood Loss; Monitor Lab and Test Results as Obtained and Notify Provider of Abnormal Findings; Monitor Patient's Weight (Edda Andres RN) Outcome: Patient will have Clear Lung Sounds (Edda Andres RN) Status: Ongoing (Edda Andres RN) Outcome: Patient will have Vital Signs within Expected Range (Edda Andres, RN) Status: Ongoing (Edda Andres RN) Outcome: Urine Output will be within Expected Range (Edda Andres, RN) Status: Ongoing (Edda Andres, RN) Outcome: Patient will have Minimal Generalized or Upper Extremity Edema (Edda Andres, RN) Status: Ongoing (Edda Andres, RN) Injury State: Risk For (Edda Andres RN) Related To: Labor and Delivery Process (Edda Andres RN) Goal(s): Patient will Remain Free from Injury (Edda Andres RN) Interventions: Monitoring as per Hospital Protocol; Assess Neurological Status; Perform Risk Assessment of Patients with Induction and ; Perform Fall Risk Assessment and Prevention per Hospital Protocol; Perform DVT Risk Assessment and Prophylaxis per Hospital Protocol; Ensure that Oxygen, Suction, and Resuscitation Medications and Equipment are Readily Available; Confirm Patient ID Prior to Procedure(s) and Medication Administration per Hospital Policy (Edda Andres RN) Outcome: Successful Fall Risk Prevention (Edda Andres RN) Status: Ongoing (Edda Andres RN) Outcome: Patient will Deliver Infant without Adverse [place] (Edda Andres RN) Status: Ongoing (Edda Andres RN) Outcome: Patient's Neurological Status will Remain Stable (Edda Andres RN) Status: Ongoing (Edda Andres RN) Impaired Skin Integrity State: Risk For (Edda Andres RN) Related To: Vaginal Delivery; Prolonged Bedrest; Invasive Procedures (Edda Andres, RN) Goal(s): Patient will Maintain Optimal Skin Integrity, Free of Breakdown, Injury or Infection (Edda Andres RN) Interventions: Complete Screening for Pressure Ulcer Risk and Initiate Protocol per Hospital Policy; Monitor Site of Skin Impairment for Color Changes, Redness, Swelling, Warmth, Pain or Other Signs of Infection; Encourage and Assist with Position Changes; Monitor Patient's Mobility Status; Provide Adequate Nutrition and Fluids; Teach Patient Appropriate Hygienic Care; Teach Patient/Family Skin Care Management (Edda Andres, RN) Outcome: Patient will not have Evidence of Injury Such as Skin Breakdown, Scrapes, Cuts, or Bruising (Edda Andres RN) Status: Ongoing (Edda Andres RN) Outcome: Patient will Report Any Altered Sensation or Pain at Site of Skin Impairment (Edda Andres RN) Status: Ongoing (Edda Andres RN) Outcome: Patients Incisions and Wounds will be without Signs or Symptoms of Infection (Edda Andres RN) Status: Ongoing (Edda Andres RN) Outcome: Patient will Demonstrate Understanding of Plan to Heal Skin and Prevent Reinjury and Verbalize Risk Factors (Edda Andres, RN) Status: Ongoing (Edda Andres, RN) Parenting Impaired State: Not Applicable (Edda Andres, RN) Nutrition State: Not Applicable (Edda Andres, RN) Grieving State: Not Applicable (Edda Andres, RN) Additional Care Plan State: Actual (Jeniffer Peoples RN) Nursing Diagnosis or r/t: (Jeniffer Peoples RN) Goal(s): Patient will breastfeed at least 8 times in 24 hours. (Jeniffer Peoples RN) Interventions: Provide support to patient and family to ensure ability to breastfeed. (Jeniffer Peoples RN) Outcome Status: Ongoing (Jeniffer Peoples RN)
[2016-07-02 06:46] LABS: HEMATOCRIT 29.1 % (36.0-47.0); HEMOGLOBIN 9.7 g/dL (12.0-15.5); MEAN CORPUSCULAR HEMOGLOBIN 30.4 pg (27.0-33.4); MEAN CORPUSCULAR HGB CONC 33.5 g/dL (32.0-36.0); MEAN CORPUSCULAR VOLUME 91 fl (80-97); RED BLOOD COUNT 3.21 10^6/uL (3.72-5.28); WHITE BLOOD COUNT 9.8 10^3/uL (4.0-10.5)
[2016-07-02] MEDS: FERROUS SULFATE 325 MG TABLET PO SCH ×2 (09:37→17:21)
[2016-07-02] MEDS: SENNOSIDES/DOCUSATE 8.6-50 MG 1 EACH TABLET PO SCH (09:37)
[2016-07-02] MEDS: PRENATAL VITAMIN W-O CA NO5/FE FUMARATE/FA CAPSULE PO SCH (09:37)
[2016-07-02] MEDS: DOCUSATE SODIUM 100 MG CAPSULE PO SCH ×2 (09:37→17:20)
--- NOTE | 2016-07-02 11:12 | PDOC PROGRESS REPORT ---
Subjective-OB Subjective: Post Delivery Day: 21 year old. Denies any needs at this time. Pt doing well, ambulatory, reports light bleeding, regular diet and voiding well. No complaints. Physical Exam (OB) Vital Signs: Temp Pulse Resp BP Pulse Ox 98.0 F 93 16 129/72 H 100 07/02/16 08:15 07/02/16 08:15 07/02/16 08:15 07/02/16 08:15 07/02/16 08:15 - Lochia Lochia Amount: Scant < 10 ml Lochia Color: Rubra/Red - Abdomen Description: Tender, Soft Hernia Present: No Fundal Description: Firm Fundal Height: u/u - u/2 Objective-Diagnostic Laboratory: 07/02/16 06:12 06/29/16 19:57 07/02/16 06:12 WBC 9.8 RBC 3.21 L Hgb 9.7 L Hct 29.1 L MCV 91 MCH 30.4 MCHC 33.5 RDW 14.0 Plt Count 133 L Assessment and Plan(PN) - Assessment and Plan (1) Vaginal delivery Is this a current diagnosis for this admission?: Yes - Time Spent with Patient Time with patient: Less than 15 minutes Medications reviewed and adjusted accordingly: Yes - Disposition Anticipated Discharge: Home Within: within 24 hours
[2016-07-03] MEDS: IBUPROFEN 800 MG TABLET PO SCH (06:01)
[2016-07-03] MEDS: DOCUSATE SODIUM 100 MG CAPSULE PO SCH (09:50)
[2016-07-03] MEDS: PRENATAL VITAMIN W-O CA NO5/FE FUMARATE/FA CAPSULE PO SCH (09:50)
[2016-07-03] MEDS: FERROUS SULFATE 325 MG TABLET PO SCH (09:50)
[2016-07-03] MEDS: SENNOSIDES/DOCUSATE 8.6-50 MG 1 EACH TABLET PO SCH (09:50)
--- NOTE | 2016-07-03 11:01 | PDOC DISCHARGE SUMMARY ---
Final Diagnosis Discharge Date: 07/03/16 - Final Diagnosis (1) Vaginal delivery Is this a current diagnosis for this admission?: Yes Discharge Data - Discharge Medication Home Medications: Vit/Iron Fumarate/FA [ Tablet] 1 each PO DAILY 05/13/16 Ibuprofen [Motrin 800 mg Tablet] 800 mg PO Q8 #60 tablet 07/02/16 Reason(s) for Admission: Induction of Labor, Gestional Diabetes Procedures: NST Intrapartum Procedure(s): Spontaneous Vaginal Delivery Complication(s): Laceration-Labial Laceration-Degree: 1st - Diagnosis Test Laboratory: 06/29/16 06/29/16 19:37 19:57 RBC 3.88 Hgb 11.7 L Hct 35.0 L Urine Opiates Screen NEGATIVE - Discharge information/Instructions Discharge Activity: Activity As Tolerated, Pelvic Rest Discharge Diet: Regular Disposition: HOME, SELF-CARE Follow up with: [facility] in: 4, Weeks
[2016-07-03 11:17] VITALS: BP 135/71
--- NOTE | 2016-07-12 14:32 | Delivery Summary ---
Del Sum A-C Datetime Report Generated by CPN: 07/12/2016 14:32 ADMISSION DATA Chief Complaint: Scheduled Induction of Labor Indication for Induction: Post Dates; Maternal Diabetes Admission Impression: Term, Intrauterine DELIVERY PERSONNEL Delivery Doctor:: Brandi Carrero CNM Labor and Delivery Nurse:: Natalya Dooley RNcommunity engagement specialist Nurse:: Neha Oliver RNC Geriatric Assistant:: Melissa Duenas RN Spiral Tube Winder/BULK DRIVER: Jessica Ceasar, RECOVERY AUDITOR MATERNAL INFORMATION Delivery Anesthesia: Epidural Medications After Delivery: Pitocin Bolus-Please Comment Meds After Delivery Comment: Pitocin 20 units in 1 L NS bolusing per order Estimated Blood Loss (ml): 300 Maternal Complications: None Provider Comments: SVDVM over intact perineum, OA, vigorous, to mothers abd. Cord clamped x 2 cut per fob. Placenta intact via sharpe. EBL 300. Apgars 9,9. LABOR SUMMARY EDC: 06/25/2016 00:00 No. Babies in Womb: 1 Attempted: No Labor Anesthesia: Epidural LABOR INFORMATION Reason for Induction: Maternal Diabetes Onset of Labor: 07/01/2016 06:48 Complete Dilatation: 07/01/2016 08:30 Cervical Ripening Agents: Cervidil; Cytotec @ Oxytocin: N/A Group B Beta Strep: negative Antibiotics # of Doses: 0 Name of Antibiotic Given: n/a Steroids Given: None Reason Steroids Not Administered: Not Applicable MEMBRANES Membranes Rupture Method: Spontaneous Rupture of Membranes: 07/01/2016 08:23 Length of Rupture (hr): 0.37 Amniotic Fluid Color: Clear Amniotic Fluid Amount: Moderate Amniotic Fluid Odor: Normal STAGES OF LABOR Stage 1 hr: 1 Stage 1 min: 42 Stage 2 hr: 0 Stage 2 min: 15 Stage 3 hr: 0 Stage 3 min: 4 Total Time in Labor hr: 2 Total Time in Labor min: 1 VAGINAL DELIVERY Episiotomy: None Laceration Extension: First Degree Laceration Type: Vaginal Laceration Repair: Yes Laceration Repair Note: 2.0 chromic used to repair 1*rt labial laceration Sponge Count Correct: N/A Sharps Count Correct: Yes CSECTION DELIVERY Primary Indication: N/A Secondary Indication: N/A CSection Incidence: N/A Labor: N/A Elective: N/A CSection Incision: N/A BABY A INFORMATION Infant Delivery Date/Time: 07/01/2016 08:45 Method of Delivery: Vaginal Born in Route : No : N/A Forceps: N/A Vacuum Extraction: N/A Shoulder Dystocia : No PRESENTATION/POSITION BABY A Presentation: Cephalic Cephalic Presentation: Vertex Vertex Position: Left Occipital Anterior Breech Presentation: N/A PLACENTA INFORMATION BABY A Placenta Delivery Time : 07/01/2016 08:49 Placenta Method of Delivery: Spontaneous Placenta Status: Delivered SCORES BABY A Heart Rate 1 min: >100 bpm Resp Effort 1 min: Good Cry Reflex Irritability 1 min: Cough or Sneeze or Pulls Away Muscle Tone 1 min: Active Motion Color 1 min: Body Portia, Extremities Blue Resuscitation Effort 1 min: Tactile Stimulation SCORE 1 MIN: 9 Heart Rate 5 min: >100 bpm Resp Effort 5 min: Good Cry Reflex Irritability 5 min: Cough or Sneeze or Pulls Away Muscle Tone 5 min: Active Motion Color 5 min: Body Portia, Extremities Blue Resuscitation Effort 5 min: N/A SCORE 5 MIN: 9 Resuscitation Effort 10 min: N/A INFORMATION BABY A Gestational Age at Delivery: 40.6 Gestational Status: Full Term- 39- 40.6 Weeks Infant Outcome : Liveborn Infant Condition : Stable Sex: Male IDENTIFICATION BABY A Infant Verification Date/Time: 07/01/2016 09:17 ID Band Number: [id number] Mother's Name Verified: Yes Infant RN Verifying : D Bellkelliee rnc Additional Verifying Personnel: k Alexsandra rnc WEIGHT/LENGTH BABY A Birthweight (gm): 3640 Weight (lb): 8 Infant Weight (oz): 0 Length (in): 19.50 Infant Length (cm): 49.53 CORD INFORMATION BABY A No. Cord Vessels: 3 Nuchal Cord : N/A Cord Blood Taken: Yes-For Eval (Mom's Blood Type - or O+) Infant Suction: Mouth; Nose ASSESSMENT BABY A Infant Complications: None Physical Findings at Delivery: Within Normal Limits Infant Respirations: Appears Normal Skin to Skin: Yes Physical Therapy Manager/ALS Called : No Care By: Belgica Oliver [facility] Transferred To: Remains with Mother BABY B INFORMATION : N/A SIGNATURES Assignment: Shana Cuevas MD Signature: with User ID: [email or web address] : with User ID: [email or web address] a : I was personally available for consultation and serving as supervising physician for the P.
== END 2016-07-03 12:45 | disposition home or self-care (01) | DRG 775 ==
LOC: LR 19:35 → 2S 07-01 10:56 → EDSTATUS 07-14 19:33
PROVIDERS: ADMIT Obstetrics & Gynecology; ATTEND Obstetrics & Gynecology
PROC: 4A1HXCZ Monitoring of Products of Conception, Cardiac Rate, External Approach (ICD-10-PCS; 2016-06-29)
PROC: 3E0P7GC Introduction of Other Therapeutic Substance into Female Reproductive, Via Natural or Artificial Opening (ICD-10-PCS; 2016-06-30)
PROC: 10E0XZZ Delivery of Products of Conception, External Approach (ICD-10-PCS; principal; 2016-07-01)
PROC: 0HQ9XZZ Repair Perineum Skin, External Approach (ICD-10-PCS; 2016-07-01)
DX: O48.0 Post-term pregnancy (principal); O24.420 Gestational diabetes mellitus in childbirth, diet controlled; O70.0 First degree perineal laceration during delivery; Z3A.40 40 weeks gestation of pregnancy; Z87.440 Personal history of urinary (tract) infections; Z87.891 Personal history of nicotine dependence; Z37.0 Single live birth
CPT/HCPCS: 36415; 80053; 80307; 81005; 82962; 85025; 85027; 86592; 86850; 86900; 86901; J2270; J2300; J2370; J2405; J2590; J3010; J3490; S0119

== ENCOUNTER → 2016-07-11 | Outpatient (CLI) | payer OTHER ==
[2016-07-11 14:35] LABS: HEMATOCRIT 39.2 % (36.0-47.0); HEMOGLOBIN 13.2 g/dL (12.0-15.5); HGB HCT DIFFERENCE 0.4; MEAN CORPUSCULAR HGB CONC 33.8 g/dL (32.0-36.0); MEAN CORPUSCULAR VOLUME 89 fl (80-97); RED BLOOD COUNT 4.42 10^6/uL (3.72-5.28); RED CELL DISTRIBUTION WIDTH 13.5 % (11.5-14.0); WHITE BLOOD COUNT 7.4 10^3/uL (4.0-10.5)
[2016-07-11 14:36] LABS: APPEARANCE,URINE CLOUDY; BILIRUBIN,URINE NEGATIVE (NEGATIVE); GLUCOSE, URINE NEGATIVE (NEGATIVE); KETONES,URINE NEGATIVE (NEGATIVE); LEUKOCYTE ESTERASE,URINE LARGE (NEGATIVE); NITRITE,URINE NEGATIVE (NEGATIVE); PROTEIN,URINE 100 mg/dL (NEGATIVE); URINE SPECIFIC GRAVITY 1.026; UROBILINOGEN,URINE NEGATIVE mg/dL (<2.0)
[2016-07-11 15:11] LABS: ANION GAP 12 (5-19); BLOOD UREA NITROGEN 19 mg/dL (7-20); CALCIUM 9.4 mg/dL (8.4-10.2); CARBON DIOXIDE 27 mmol/L (22-30); CHLORIDE 105 mmol/L (98-107); CREATININE RESULT 0.86 mg/dL (0.52-1.25); GLUCOSE 78 mg/dL (75-110); POTASSIUM 4.1 mmol/L (3.6-5.0); SODIUM 143.9 mmol/L (137-145)
== END ==
LOC: OD 13:52
PROVIDERS: ATTEND Internal Medicine Nephrology
DX: R80.9 Proteinuria, unspecified (principal)
CPT/HCPCS: 36415; 80048; 81001; 85027

== ENCOUNTER → 2016-09-28 | Outpatient (CLI) | payer OTHER ==
[2016-09-28 13:21] LABS: HEMATOCRIT 40.5 % (36.0-47.0); HEMOGLOBIN 13.2 g/dL (12.0-15.5); HGB HCT DIFFERENCE -0.9; MEAN CORPUSCULAR HEMOGLOBIN 28.8 pg (27.0-33.4); MEAN CORPUSCULAR HGB CONC 32.6 g/dL (32.0-36.0); MEAN CORPUSCULAR VOLUME 88 fl (80-97); RED BLOOD COUNT 4.58 10^6/uL (3.72-5.28); RED CELL DISTRIBUTION WIDTH 13.9 % (11.5-14.0); WHITE BLOOD COUNT 4.5 10^3/uL (4.0-10.5)
[2016-09-28 13:24] LABS: APPEARANCE,URINE SLIGHTLY-CLOUDY; BILIRUBIN,URINE NEGATIVE (NEGATIVE); GLUCOSE, URINE NEGATIVE (NEGATIVE); KETONES,URINE NEGATIVE (NEGATIVE); LEUKOCYTE ESTERASE,URINE SMALL (NEGATIVE); NITRITE,URINE NEGATIVE (NEGATIVE); PROTEIN,URINE NEGATIVE (NEGATIVE); UROBILINOGEN,URINE NEGATIVE mg/dL (<2.0)
[2016-09-28 13:36] LABS: ANION GAP 11 (5-19); BLOOD UREA NITROGEN 12 mg/dL (7-20); CALCIUM 9.5 mg/dL (8.4-10.2); CARBON DIOXIDE 24 mmol/L (22-30); CHLORIDE 108 mmol/L (98-107); CREATININE RESULT 0.91 mg/dL (0.52-1.25); GLUCOSE 79 mg/dL (75-110); POTASSIUM 4.2 mmol/L (3.6-5.0); SODIUM 142.7 mmol/L (137-145)
== END ==
LOC: OD 12:29
PROVIDERS: ATTEND Internal Medicine Nephrology
DX: R80.9 Proteinuria, unspecified (principal)
CPT/HCPCS: 36415; 80048; 81001; 85027